=== PATIENT | male | born 1940 | race Caucasian/White ===

== ENCOUNTER 2017-09-16 17:14 | Inpatient (IN) | payer MEDICARE, OTHER ==
[~2017-09-16 17:14] MED LIST: fentaNYL 50 mcg/hr Tdm Patch TD SCH
--- NOTE | 2017-09-16 19:22 | ED Physician Chart ---
ED Chief Complaint/HPI - Patient Information Allergies:: Allergies Allergy/AdvReac Type Severity Reaction Status Date / Time Penicillins [PCN] Allergy Verified 09/16/17 17:25 ACETRAM Allergy Uncoded 09/16/17 17:25 Vitals:: Vital Signs - 8 hr 09/16/17 17:26 Temp 99.5 F HR 76 RR 17 BP 144/97 O2 Sat % 97 <Lit Lockhart - Last Filed: 09/16/17 21:43> - Patient Information Date Seen:: 09/16/17 Time Seen:: 19:21 Chief Complaint:: Aggressiveness History of Present Illness:: 76 yo male was brought from SNF to ER for evaluation of delusional thinking and aggressive behavior. Allergies:: Allergies Allergy/AdvReac Type Severity Reaction Status Date / Time Penicillins [PCN] Allergy Verified 09/16/17 17:25 ACETRAM Allergy Uncoded 09/16/17 17:25 Vitals:: Vital Signs - 8 hr 09/16/17 17:26 Temp 99.5 F HR 76 RR 17 BP 144/97 O2 Sat % 97 <Naveen Benítez - Last Filed: 09/18/17 20:53> ED Review of Systems - Review of Systems General/Constitutional: No fever, Weakness Skin: No bruising Head: No headache Eyes: No pain ENT: No nasal drainage Neck: No neck pain Cardio Vascular: No chest pain Pulmonary: No SOB GI: No nausea, No vomiting Musculoskeletal: No bone or joint pain Psychiatric: Depression Neurological: Weakness <Naveen Benítez - Last Filed: 09/18/17 20:53> ED Past Medical History - Past Medical History Past Medical History: Asthma/COPD, Other (ATRIAL FIBRILLATION, BPH) Social History: Non Smoker, No Alcohol, No Drug Use Psychiatricy History: Depression, Other (Schizoaffective disorder) <Naveen Benítez - Last Filed: 09/18/17 20:53> Family Medical History - Family Member Mother History Unknown: Yes Hx Family Cancer: Yes (mother) Hx Family Coronary Artery Disease: No Hx Family Congestive Heart Failure: No Hx Family Hypertension: No Hx Family Stroke: No Hx Family Diabetes: No Hx Family Seizures: No Hx Family Dementia: Yes Hx Family AIDS: No Hx Family HIV: No Hx Family COPD: No Hx Family Hepatitis: No Hx Family Psychiatric Problems: No Hx Family Tuberculosis: No <Naveen Benítez Last Filed: 09/18/17 20:53> ED Physical Exam - Physical Examination General/Constitutional: Awake Head: Atraumatic Eyes: PERRL Skin: No ecchymosis ENMT: Nasal exam nl Neck: No nuchal rigidity Respiratory: No Wheeze/Rhonchi/Rales Cardio Vascular: No murmur, gallop, rubs, NL S1 S2 Other Cardio Vascular comments:: IRR GI: No tenderness/rebounding/guarding Extremities: No edema Neuro/Psych: No focal deficits <Naveen Benítez Last Filed: 09/18/17 20:53> ED Labs/Radiology/EKG Results - Lab Results Results: Laboratory Tests 09/16/17 09/16/17 09/16/17 19:40 19:40 19:40 WBC 5.5 RBC 3.64 L Hgb 11.7 L Hct 35.3 L MCV 97.2 MCH 32.2 H MCHC Differential 33.2 RDW 15.3 Plt Count 164 MPV 7.1 Neutrophils % 62.0 Lymphocytes % 28.3 Monocytes % 7.3 Eosinophils % 1.0 Basophils % 1.4 Sodium 122 L Potassium 4.7 Chloride 92 L Carbon Dioxide 25.8 Anion Gap 8.9 BUN 12 Creatinine 0.8 Est GFR ( Amer) TNP Est GFR (Non-Af Amer) TNP BUN/Creatinine Ratio 15.0 Glucose 98 Calcium 9.0 Total Bilirubin 0.5 AST 18 ALT 6 L Alkaline Phosphatase 59 Troponin I B-Natriuretic Peptide 255.0 H Total Protein 6.8 Albumin 3.8 L Globulin 3.0 Albumin/Globulin Ratio 1.3 TSH 09/16/17 09/16/17 19:40 19:40 WBC RBC Hgb Hct MCV MCH MCHC Differential RDW Plt Count MPV Neutrophils % Lymphocytes % Monocytes % Eosinophils % Basophils % Sodium Potassium Chloride Carbon Dioxide Anion Gap BUN Creatinine Est GFR ( Amer) Est GFR (Non-Af Amer) BUN/Creatinine Ratio Glucose Calcium Total Bilirubin AST ALT Alkaline Phosphatase Troponin I < 0.01 L B-Natriuretic Peptide Total Protein Albumin Globulin Albumin/Globulin Ratio TSH 1.33 - Radiology Results Results: Chest x-ray showed prominent calcified aortic arch; no infiltrate - EKG Interpretations Rate & Rhythm: atrial fibrillation with a rate of 92 [place]: left axis deviation Comments:: Premature ventricular contraction <Lit Lockhart - Last Filed: 09/16/17 21:43> ED Septic Shock - . Is Septic Shock (SBP<90, OR Lactate>4 mmol\L) present?: No - <6hrs of presentation: Vital Signs: Vital Signs - 8 hr 09/16/17 17:26 Temp 99.5 F HR 76 RR 17 BP 144/97 O2 Sat % 97 <Lit Lockhart - Last Filed: 09/16/17 21:43> - <6hrs of presentation: Vital Signs: Vital Signs - 8 hr 09/16/17 17:26 Temp 99.5 F HR 76 RR 17 BP 144/97 O2 Sat % 97 <Naveen Benítez - Last Filed: 09/18/17 20:53> ED Reassessment (Disposition) - Reassessment Reassessment Condition:: Unchanged - Diagnosis Diagnosis:: Hyponatremia; atrial fibrillation; agitation - Patient Disposition Admitted to:: Telemetry Spoke to:: Kayla Epps Admitting Medical Physician:: Kayla Epps Condition at Disposition:: Stable, Unchanged <Lit Lockhart - Last Filed: 09/16/17 21:43> - Reassessment Reassessment:: Dr. Lockhart assumed the care at 20:00 <Naveen Benítez - Last Filed: 09/18/17 20:53> ED Discharge Plan <Lit Lockhart - Last Filed: 09/16/17 21:43> <Naveen Benítez - Last Filed: 09/18/17 20:53> - Patient Disposition Admit/Discharge/Transfer: Acute Care w/in this hosp
[2017-09-16 19:49] LABS: % BASOPHILS 1.4 % (0.0-2.0); % LYMPHOCYTES 28.3 % (20.0-50.0); % MONOCYTES 7.3 % (2.0-10.0); BASOPHILE ABSOLUTE 0.1 Th/cumm (0-0.2); EOSINOPHILE ABSOLUTE 0.1 Th/cmm (0.1-0.4); HEMATOCRIT 35.3 % (41.0-60); HEMOGLOBIN 11.7 gm/dL (12-16); LYMPHOCYTE ABSOLUTE 1.6 Th/cmm (1.5-3.0); MEAN CELL VOLUME 97.2 fl (80-99); MEAN CORPUSCULAR HEMOGLOBIN 32.2 pg (27.0-31.0); MEAN CORPUSCULAR HGB CONC 33.2 pg (28.0-36.0); MEAN PLATELET VOLUME 7.1 fl; MONOCYTE ABSOLUTE 0.4 Th/cmm (0.3-1.0); NEUTROPHILE ABSOLUTE 3.3 Th/cmm (1.8-8.0); PLATELET COUNT 164 Th/cmm (150-400); RED BLOOD COUNT 3.64 Mil/cmm (3.80-5.80); RED CELL DISTRIBUTION WIDTH 15.3 % (11.5-20.0); WHITE BLOOD COUNT 5.5 Th/cmm (4.8-10.8)
[2017-09-16 20:03] LABS: ALB/GLOB RATIO 1.3 (1.0-1.8); ALBUMIN 3.8 gm/dL (4.2-5.5); ALKALINE PHOSPHATASE 59 U/L (34-104); ANION GAP 8.9 (7.0-16.0); BILIRUBIN,TOTAL 0.5 mg/dL (0.3-1.0); BUN - UREA NITROGEN 12 mg/dL (7-25); CARBON DIOXIDE 25.8 mEq/L (21.0-31.0); CHLORIDE 92 mEq/L (98-107); CREATININE - SERUM 0.8 mg/dL (0.7-1.3); GLUCOSE 98 mg/dL (70-105); POTASSIUM SERUM 4.7 mEq/L (3.5-5.1); SGOT 18 U/L (13-39); SGPT/ALT 6 U/L (7-52); SODIUM SERUM 122 mEq/L (136-145); TOTAL PROTEIN,SERUM 6.8 gm/dL (6.0-8.3)
[2017-09-16] MEDS ORDERED: Albuterol Nebulizer 2.5mg/3mL HHN PRN (23:31)
[2017-09-16] MEDS ORDERED: Fleet Enema 135 mL RC PRN (23:34)
[2017-09-16] MEDS ORDERED: Magnesium Hydroxide (MOM) 30 mL UDC PO PRN (23:34)
[2017-09-16] MEDS ORDERED: SULINDAC 200 MG PO SCH (23:45)
[2017-09-16] MEDS ORDERED: Non-Formulary Item 1 EA (Apixaban [Eliquis] 2.5 MG) PO SCH (23:45)
[2017-09-17 03:47] LABS: URINE MICROSCOPIC INDICATED? YES; URINE SOURCE RANDOM
[2017-09-17 03:51] LABS: URINE BILIRUBIN NEGATIVE (NEGATIVE); URINE BLOOD MODERATE (NEGATIVE); URINE GLUCOSE (UA) NEGATIVE (NEGATIVE); URINE KETONE NEGATIVE (NEGATIVE); URINE LEUKOCYTE ESTERASE SMALL (NEGATIVE); URINE NITRATE NEGATIVE (NEGATIVE); URINE PH 7.5 (4.6 - 8.0); URINE PROTEIN NEGATIVE (NEGATIVE); URINE UROBILINOGEN 0.2 E.U./dL (0.2 - 1.0)
[2017-09-17 04:01] LABS: URINE CLARITY CLEAR (CLEAR); URINE COLOR YELLOW
[2017-09-17 04:04] LABS: URINE BACTERIA MODERATE /hpf (NONE SEEN); URINE EPITHELIAL CELLS OCCASIONAL /lpf (FEW)
[2017-09-17 06:39] LABS: % EOSINOPHILS 1.6 % (0.0-5.0); % LYMPHOCYTES 37.8 % (20.0-50.0); % MONOCYTES 9.2 % (2.0-10.0); % NEUTROPHILS 51.4 % (40.0-80.0); EOSINOPHILE ABSOLUTE 0.1 Th/cmm (0.1-0.4); HEMATOCRIT 35.4 % (41.0-60); MEAN CELL VOLUME 96.8 fl (80-99); MEAN CORPUSCULAR HEMOGLOBIN 32.9 pg (27.0-31.0); MEAN PLATELET VOLUME 7.5 fl; MONOCYTE ABSOLUTE 0.5 Th/cmm (0.3-1.0); NEUTROPHILE ABSOLUTE 2.6 Th/cmm (1.8-8.0); PLATELET COUNT 165 Th/cmm (150-400); RED BLOOD COUNT 3.66 Mil/cmm (3.80-5.80); RED CELL DISTRIBUTION WIDTH 15.4 % (11.5-20.0); WHITE BLOOD COUNT 5.2 Th/cmm (4.8-10.8)
[2017-09-17] MEDS ORDERED: Albuterol Nebulizer 2.5mg/3mL HHN SCH (07:00)
[2017-09-17 07:01] LABS: ALB/GLOB RATIO 1.2 (1.0-1.8); ALBUMIN 3.7 gm/dL (4.2-5.5); ALKALINE PHOSPHATASE 58 U/L (34-104); ANION GAP 9.3 (7.0-16.0); BILIRUBIN,TOTAL 0.6 mg/dL (0.3-1.0); BUN - UREA NITROGEN 10 mg/dL (7-25); CALCIUM SERUM 8.9 mg/dL (8.6-10.3); CHLORIDE 95 mEq/L (98-107); CREATININE - SERUM 0.8 mg/dL (0.7-1.3); GLUCOSE 87 mg/dL (70-105); MAGNESIUM 2.2 mg/dL (1.9-2.7); POTASSIUM SERUM 4.3 mEq/L (3.5-5.1); SGOT 19 U/L (13-39); SGPT/ALT 6 U/L (7-52); SODIUM SERUM 126 mEq/L (136-145); TOTAL PROTEIN,SERUM 6.8 gm/dL (6.0-8.3)
[2017-09-17] MEDS: INSULIN ASPART SLIDING SCALE 100 UNITS/ML UNIT SUBQ SCH ×3 (07:15→21:38)
--- NOTE | 2017-09-17 07:39 | Diagnostic Imaging Report ---
CHEST X-RAY: AP view INDICATION: Shortness of breath COMPARISON: None FINDINGS: Exam is limited due to patient positioning. Curvilinear density, likely a skinfold is seen along the left mid thorax. Increased bibasilar lung markings are noted. Chronic lung changes are noted. No focal consolidation or effusions. Mild cardiomegaly is noted with atherosclerosis. Degenerative changes of the spine are noted with scoliosis. Old left lower rib fractures are noted. IMPRESSION: Limited exam due to positioning. Curvilinear density along the left mid lung zone is probably related to a skinfold. Otherwise no focal consolidation identified. Bibasal subsegmental atelectatic changes. Mild cardiomegaly with atherosclerosis. When clinically feasible, follow-up dedicated PA and lateral views are recommended for further assessment.
[2017-09-17] MEDS: Albuterol/Ipratropium Neb 3 ML AERS HHN SCH ×4 (07:57→19:02)
[2017-09-17] MEDS ORDERED: INSULIN HUMAN REGULAR 100 UNITS/ML UNIT SUBQ SCH (09:00)
[2017-09-17] MEDS ORDERED: TOFACITINIB CITRATE 11 MG PO SCH (09:00)
[2017-09-17] MEDS ORDERED: Non-Formulary Item 1 EA (Tiotropium Bromide [Spiriva] 18 MCG) INH SCH (09:00)
[2017-09-17] MEDS: Lactobacillus Rhamnosus GG 15 Billion CFU CAP.SPRINK PO SCH ×2 (09:57→17:30)
[2017-09-17] MEDS: Lactulose 10 Gm/15 mL 30mL UDC PO SCH (09:59)
[2017-09-17] MEDS: POLYETHYLENE GLYCOL 3350 17 GM PACK PO SCH (10:00)
--- NOTE | 2017-09-17 10:08 | History & Physical ---
ADMIT DATE: CHIEF COMPLAINT: Agitation. HISTORY OF PRESENT ILLNESS: The patient is a 76-year-old gentleman with history of psych disorder/schizoaffective disorder, hypertension, COPD, seizure disorder, rheumatoid arthritis, BPH, atrial fib with questionable CHF, who was in his usual state of health until a couple days ago, when he started getting agitated and therefore was transferred to this facility for possible Geropsych admission. On routine labs, he was noted to have a sodium of 122, but otherwise asymptomatic. His BNP level was also noted to be a little high at 255 and UA was consistent with a UTI. The patient has been admitted to the telemetry floor for further management and care. PAST MEDICAL HISTORY: As noted above. History of chronic pain syndrome secondary to advanced RA. PAST SURGERIES: He states he has had bilateral inguinal hernia repair, left eye surgery, appendectomy. FAMILY HISTORY: Noncontributory. SOCIAL HISTORY: Previous smoker. Denies any ETOH. He lives at [facility]. ALLERGIES: ALLERGIC TO PENICILLIN AND ACETRAM. OUTPATIENT MEDICATIONS: Acetaminophen 650 q.6 p.r.n. for pain or fever, DuoNeb q. 4 hours as needed, Eliquis 2.5 b.i.d., Dulcolax 10 mg q.6 p.r.n. for constipation, budesonide metered dose inhaler b.i.d., Colace 250 b.i.d., Cymbalta 30 every day, fentanyl patch 15 mcg q. 72 hours, folic acid 1 mg every day, insulin sliding scale, acidophilus 1 tab b.i.d., lactulose 20 grams every day p.r.n. for constipation, Keppra 500 mg b.i.d., Claritin 10 every day, milk of magnesia 30 mL q. 24 hours, methotrexate 15 mg q. 7 days, metoprolol 25 b.i.d., Fleet enema q. 72 hours p.r.n. for severe constipation, MiraLax 17 g every day, Seroquel 300 at bedtime, sulfasalazine 200 b.i.d., sulindac 200 b.i.d., Flomax 0.4 every day, Spiriva 18 mcg inhalation every day, and Ambien 10 at bedtime. REVIEW OF SYSTEMS: CONSTITUTIONAL: He denies any fever, chills, recent weight loss and recent ailments. CARDIAC: No chest pain, palpitations. PULMONARY: He has chronic cough, but no acute shortness of breath or phlegm production. GASTROINTESTINAL: No bowel habit changes. GENITOURINARY: Occasional urinary retention requiring I/O caths NEUROLOGIC: No changes in vision, no headaches. Denies any syncopal episodes. PSYCH: Does admit to increased agitation and also complains of insomnia. PHYSICAL EXAMINATION: VITAL SIGNS: Temperature 98.6, pulse 68-103, respirations 20, BP 124/86, satting 97% on room air. GENERAL: Well-developed, thin, elderly gentleman currently awake, alert and oriented x 2. He is cooperative and is answering questions appropriately. HEAD AND NECK: Normocephalic, atraumatic. Pupils are reactive to light. Extraocular movements are intact. Oropharynx moist and clear. CARDIOVASCULAR: Regular rate and rhythm with distant sounds. LUNGS: Diminished, but clear to auscultation bilaterally. ABDOMEN: Soft, supple, nontender, nondistended, normoactive bowel sounds. EXTREMITIES: On lower extremity, there is no pedal edema. MUSCULOSKELETAL EXAM: He has got ulnar deviation in both upper extremities. NEURO: Appears to be nonfocal. Cranial nerves 2-12 are within normal limits. LABS: White count 5.5, H and H 11/35, platelet count 164. Sodium 122, potassium 4.7, chloride 92. LFTs were essentially within normal limits. BNP was 255. TSH 1.33 and UA was positive for glucose, leukocyte esterase, 2-5 rbc's, and moderate bacteria. DIAGNOSTICS: A chest x-ray showed mild cardiomegaly with atherosclerosis. Bibasilar segmental atelectatic changes. IMPRESSION: 1. Acute psych decompensation with agitation. 2. History of schizoaffective disorder. 3. Hyponatremia. 4. History of congestive heart failure with mild elevation of BNP. 5. History of atrial fibrillation, currently rate controlled. 6. Urinary tract infection. 7. History of benign prostatic hypertrophy. 8. Essential hypertension. 9. History of chronic obstructive pulmonary disease - clinically stable. 10. History of seizure disorder. PLAN: The patient has been admitted to the tele bella given his atrial fib and will be kept on his medications as scheduled. I have added Lasix 40 mg IV every day and we will monitor his labs and BNP level and renal function. A psych consult will also be asked for further management and care. Once his sodium level improves and if the pain remains stable, the patient will be eligible to be transferred to [facility] for further psych management and care. JOB# [id number] JEAN PIERRE
[2017-09-17] MEDS: Budesonide 0.5 Mg/2 mL Ud HHN SCH (19:02)
[2017-09-18 06:22] LABS: % BASOPHILS 0.1 % (0.0-2.0); % EOSINOPHILS 1.5 % (0.0-5.0); % LYMPHOCYTES 30.6 % (20.0-50.0); % MONOCYTES 8.7 % (2.0-10.0); % NEUTROPHILS 59.1 % (40.0-80.0); EOSINOPHILE ABSOLUTE 0.1 Th/cmm (0.1-0.4); HEMATOCRIT 37.7 % (41.0-60); HEMOGLOBIN 12.8 gm/dL (12-16); LYMPHOCYTE ABSOLUTE 1.5 Th/cmm (1.5-3.0); MEAN CORPUSCULAR HEMOGLOBIN 33.2 pg (27.0-31.0); MEAN CORPUSCULAR HGB CONC 33.8 pg (28.0-36.0); MEAN PLATELET VOLUME 7.3 fl; MONOCYTE ABSOLUTE 0.4 Th/cmm (0.3-1.0); NEUTROPHILE ABSOLUTE 2.8 Th/cmm (1.8-8.0); PLATELET COUNT 163 Th/cmm (150-400); RED BLOOD COUNT 3.85 Mil/cmm (3.80-5.80); RED CELL DISTRIBUTION WIDTH 15.7 % (11.5-20.0); WHITE BLOOD COUNT 4.8 Th/cmm (4.8-10.8)
[2017-09-18] MEDS: Albuterol/Ipratropium Neb 3 ML AERS HHN SCH ×4 (07:13→19:09)
[2017-09-18] MEDS: Budesonide 0.5 Mg/2 mL Ud HHN SCH ×2 (07:13→19:09)
--- NOTE | 2017-09-18 08:03 | Diagnostic Imaging Report ---
Ultrasound urinary bladder History: Urinary retention, assess pre and post void bladder volumes Comparison: None Technique: Sonography of the pelvis was performed in multiple planes. The prevoid urinary bladder volume is 82 mL's. The postvoid bladder volume is 60 mL's. The urinary bladder wall measures 4 mm. The prostate gland measures 2.6 x 3.3 x 2.6 cm demonstrating an echogenic focus. IMPRESSION: Slightly elevated post void residual bladder volume of 60 mL. The significance of this finding should be correlated clinically. Mild prominence of urinary bladder wall. Inflammatory or infiltrative process cannot be excluded, correlate clinically. Heterogeneous prostate gland with likely calcification, nonspecific. Please correlate with PSA levels.
[2017-09-18] MEDS: Lactulose 10 Gm/15 mL 30mL UDC PO SCH (08:46)
[2017-09-18] MEDS: Lactobacillus Rhamnosus GG 15 Billion CFU CAP.SPRINK PO SCH ×2 (08:47→18:05)
[2017-09-18] MEDS: POLYETHYLENE GLYCOL 3350 17 GM PACK PO SCH (08:48)
[2017-09-18 09:06] LABS: ANION GAP 11.8 (7.0-16.0); BUN - UREA NITROGEN 14 mg/dL (7-25); CALCIUM SERUM 9.3 mg/dL (8.6-10.3); CHLORIDE 94 mEq/L (98-107); CREATININE - SERUM 0.8 mg/dL (0.7-1.3); GLUCOSE 85 mg/dL (70-105); POTASSIUM SERUM 3.8 mEq/L (3.5-5.1); SODIUM SERUM 128 mEq/L (136-145)
[2017-09-18] MEDS: INSULIN ASPART SLIDING SCALE 100 UNITS/ML UNIT SUBQ SCH ×4 (09:17→21:05)
[2017-09-19 06:17] LABS: % BASOPHILS 0.1 % (0.0-2.0); % EOSINOPHILS 0.4 % (0.0-5.0); % LYMPHOCYTES 14.4 % (20.0-50.0); % MONOCYTES 8.7 % (2.0-10.0); % NEUTROPHILS 76.4 % (40.0-80.0); HEMOGLOBIN 12.7 gm/dL (12-16); LYMPHOCYTE ABSOLUTE 1.5 Th/cmm (1.5-3.0); MEAN CELL VOLUME 98.4 fl (80-99); MEAN CORPUSCULAR HEMOGLOBIN 32.9 pg (27.0-31.0); MEAN CORPUSCULAR HGB CONC 33.5 pg (28.0-36.0); MEAN PLATELET VOLUME 7.6 fl; MONOCYTE ABSOLUTE 0.9 Th/cmm (0.3-1.0); NEUTROPHILE ABSOLUTE 7.8 Th/cmm (1.8-8.0); PLATELET COUNT 171 Th/cmm (150-400); RED BLOOD COUNT 3.86 Mil/cmm (3.80-5.80); RED CELL DISTRIBUTION WIDTH 15.4 % (11.5-20.0); WHITE BLOOD COUNT 10.2 Th/cmm (4.8-10.8)
[2017-09-19 06:30] LABS: ANION GAP 12.2 (7.0-16.0); BUN - UREA NITROGEN 21 mg/dL (7-25); CALCIUM SERUM 9.3 mg/dL (8.6-10.3); CARBON DIOXIDE 26.4 mEq/L (21.0-31.0); CHLORIDE 91 mEq/L (98-107); GLUCOSE 101 mg/dL (70-105); MAGNESIUM 2.1 mg/dL (1.9-2.7); POTASSIUM SERUM 3.6 mEq/L (3.5-5.1); SODIUM SERUM 126 mEq/L (136-145)
[2017-09-19] MEDS: INSULIN ASPART SLIDING SCALE 100 UNITS/ML UNIT SUBQ SCH ×3 (06:42→17:26)
[2017-09-19] MEDS: Albuterol/Ipratropium Neb 3 ML AERS HHN SCH ×4 (07:14→18:57)
[2017-09-19] MEDS: Budesonide 0.5 Mg/2 mL Ud HHN SCH ×2 (07:14→18:57)
[2017-09-19] MEDS: Lactulose 10 Gm/15 mL 30mL UDC PO SCH (08:27)
[2017-09-19] MEDS: Lactobacillus Rhamnosus GG 15 Billion CFU CAP.SPRINK PO SCH ×2 (08:30→16:19)
[2017-09-19] MEDS: POLYETHYLENE GLYCOL 3350 17 GM PACK PO SCH (08:31)
--- NOTE | 2017-09-19 11:47 | Discharge Summary ---
DATE OF DISCHARGE: 09/19/2017 ADMITTING DIAGNOSES: 1. Acute psych decompensation with agitation 2. Hyponatremia. 3. History of congestive heart failure with mild elevation of BNP. 4. Urinary tract infection. SECONDARY DIAGNOSES: Include history of schizoaffective disorder, history of atrial fib, history of benign prostatic hypertrophy, essential hypertension, history of chronic obstructive pulmonary disease, clinically stable, history of seizure disorder. Chronic pain syndrome. DISCHARGE DIAGNOSES: 1. Acute psych decompensation with agitation/clinically stable. 2. Hyponatremia, improved/stable. 3. Urinary tract infection. CONSULTANTS: Dr. Lopez-psychiatry. MAJOR PROCEDURES: There was a bladder ultrasound done on the 15 showing slightly elevated postvoid residual bladder volume of 60 mL, mild prominence of the urinary bladder wall. BRIEF HOSPITAL COURSE: The patient is a 76-year-old gentleman with history of psych disorder/schizoaffective disorder, hypertension, COPD, seizure disorder, BPH, AFib with mild CHF symptomatology who was transferred to the ER secondary to agitation for possible Geropsych admission. On labs, he was noted to have a sodium of 122 and a slight elevation of BNP at 255. He also had a UA consistent with a UTI. Given these findings, the patient was admitted to the medical/surgical floor for further management and care. The patient was kept on his current medications and was given Lasix IV for the hyponatremia. Clinically, he has remained stable throughout his hospital stay and as far as his labs, the sodium did improve to a level of 126 by 09/17. His urine grew gram-negative rods with official sensitivity results pending. The patient was placed on ciprofloxacin and he denies any dysuria, but did complain of mild urinary retention which in the past has required I/O cath. DISCHARGE MEDICATIONS: Tylenol 650 q.6 p.r.n. for pain, DuoNeb q.4 hours p.r.n. for wheezing, Dulcolax 10 mg q.6 p.r.n. for constipation, Pulmicort 0.5 b.i.d., Colace 250 b.i.d., Cymbalta 30 every day, fentanyl patch 50 mcg q.72 hours. Fleet enema 133 mL q.72 hours for severe constipation, folic acid 1 mg every day, Lasix 20 p.o. every day, ibuprofen 400 mg t.i.d., insulin sliding scale per protocol, lactobacillus 1 tab b.i.d., lactulose 20 grams every day, Keppra 500 mg b.i.d., Claritin 10 mg every day, MOM 30 mL q.24 hours p.r.n. for constipation, methotrexate 15 mg q.7 days every week, Metoprolol 25 b.i.d., sulfasalazine 250 b.i.d., sulindac 200 mg b.i.d., Flomax 0.4 b.i.d., Hytrin 1 mg at bedtime, tofacitinib 11 mg every day, zolpidem 10 at bedtime. CONDITION ON DISCHARGE: Stable. DISPOSITION: Discharge to [facility] under the care of Dr. Danielle. [facility]# [id number] [facility] [place]
--- NOTE | 2017-09-19 20:08 | Consultation ---
DATE OF CONSULTATION: 09/19/2017 REQUESTING PHYSICIAN: Kayla Epps M.D. REASON FOR CONSULTATION: Agitated behavior. HISTORY OF PRESENT ILLNESS: This patient is a 76-year-old male [facility] a [facility]. Information obtained by directly interviewing the patient as reviewing the patient admission papers, disposition, and hospitalization. The patient has been getting easily irritable, screaming and yelling and has been creating a major problem at the jail facility. The patient has to be referred over here because he could not be contained at a lower level of care. The patient is reported to have multiple medical problems such as hypertension, COPD, seizure disorder, rheumatoid arthritis, BPH, atrial fibrillation and congestive heart failure. During the interview, the patient has been stating that he has to have an indwelling catheter and he cannot be easing the uterine out. The patient has been getting easily frustrated with the nursing staff. PAST PSYCHIATRIC HISTORY: The patient denies any prior psychiatric hospitalizations. MEDICAL HISTORY: Physical examination is done by Dr. Epps and is noted to have significant above-mentioned problems. SOCIAL HISTORY: The patient is a resident of the [facility]. SUBSTANCE ABUSE HISTORY: None. PHYSICAL OR SEXUAL ABUSE HISTORY: None. LEGAL PROBLEMS: None at this time. STRENGTHS AND ASSETS: The patient is poorly motivated. MENTAL STATUS EXAMINATION: The patient is a 76-year-old, looking his stated age, thin built, superficially cooperative. Insight and judgment at this time are noted to be impaired. Impulse control seems to be poor. Coping skills are also noted to be very poor. The patient is screaming and yelling. The patient has been having difficult time to cope with the stress. Review of the chart indicated that the patient is alert and aware that he is in the hospital. Review of the chart indicated that the patient is on Cymbalta for his depression and he is also receiving Seroquel 200 mg at bedtime. DIAGNOSTIC IMPRESSION: Schizoaffective disorder as per the history. PLAN: To continue the patient with the current medications. I encouraged the patient to verbalize the concerns rather than to act out. Once patient is medically cleared, the patient possibly is going to be transfer to the psychiatric unit. Thank you, Dr. Epps for allowing me to participate in the care of the patient. JOB# [id number]
== END 2017-09-19 21:34 | DRG 690 ==
LOC: ER 17:14 → TELE 22:02 → MSI 09-19 15:54
PROVIDERS: ADMIT Internal Medicine; ATTEND Internal Medicine
DX: N39.0 Urinary tract infection, site not specified (principal); E87.1 Hypo-osmolality and hyponatremia; F23 Brief psychotic disorder; I50.32 Chronic diastolic (congestive) heart failure; F25.9 Schizoaffective disorder, unspecified; J44.9 Chronic obstructive pulmonary disease, unspecified; M06.9 Rheumatoid arthritis, unspecified; I48.91 Unspecified atrial fibrillation; G40.909 Epilepsy, unspecified, not intractable, without status epilepticus; G89.4 Chronic pain syndrome; I11.0 Hypertensive heart disease with heart failure; N40.1 Benign prostatic hyperplasia with lower urinary tract symptoms; R33.8 Other retention of urine; Z90.49 Acquired absence of other specified parts of digestive tract; Z88.0 Allergy status to penicillin; Z88.8 Allergy status to other drugs, medicaments and biological substances; Z80.9 Family history of malignant neoplasm, unspecified; Z81.8 Family history of other mental and behavioral disorders
CPT/HCPCS: 36415-UA; 71045-TC; 76857-TC; 80048-TC; 80053-TC; 81001-TC; 82948-90; 83036-90; 83735-TC; 83880-TC; 84443-TC; 84484-TC; 85025-TC; 86592-TC; 87086-90; 93005; 94760; J1815; J1940; J7613; Z7610

== ENCOUNTER 2017-09-19 21:34 | Inpatient (IN) | payer MEDICARE, OTHER ==
[2017-09-20] MEDS ORDERED: Magnesium Hydroxide (MOM) 30 mL UDC PO PRN ×2 (00:07→00:25)
[2017-09-20] MEDS ORDERED: Maalox 30 mL Cup PO PRN (00:07)
[2017-09-20 00:16] VITALS: BP 130/71
[2017-09-20] MEDS ORDERED: Fleet Enema 135 mL RC PRN (00:25)
[2017-09-20] MEDS ORDERED: Albuterol Nebulizer 2.5mg/3mL HHN PRN (00:25)
[2017-09-20] MEDS ORDERED: INSULIN HUMAN REGULAR 100 UNITS/ML UNIT SUBQ SCH (07:30)
[2017-09-20] MEDS: POLYETHYLENE GLYCOL 3350 17 GM PACK PO SCH (09:00)
[2017-09-20] MEDS ORDERED: TOFACITINIB CITRATE 11 MG PO SCH (09:00)
[2017-09-20] MEDS: Lactulose 10 Gm/15 mL 30mL UDC PO SCH (09:00)
[2017-09-20] MEDS: Fexofenadine 60 mg Tab PO SCH (09:00)
[2017-09-20] MEDS ORDERED: Non-Formulary Item 1 EA (Apixaban [Eliquis] 2.5 MG) PO SCH (09:00)
[2017-09-20] MEDS: Multivitamin Tab PO SCH (09:00)
[2017-09-20] MEDS ORDERED: Non-Formulary Item 1 EA (Tiotropium Bromide [Spiriva] 18 MCG) INH SCH (09:00)
[2017-09-20] MEDS: Lactobacillus Rhamnosus GG 15 Billion CFU CAP.SPRINK PO SCH ×2 (09:00→17:57)
[2017-09-20] MEDS ORDERED: SULINDAC 200 MG PO SCH (09:00)
[2017-09-20] MEDS ORDERED: Albuterol Nebulizer 2.5mg/3mL HHN SCH (09:00)
[2017-09-20] MEDS: Albuterol Nebulizer 2.5mg/3mL HHN SCH (19:41)
[2017-09-20] MEDS: Budesonide 0.5 Mg/2 mL Ud HHN SCH (19:42)
--- NOTE | 2017-09-21 02:03 | Psychosocial Evaluation ---
DATE OF SERVICE: 09/19/2017 PSYCHIATRIC EVALUATION IDENTIFYING DATA: The patient is a 76-year-old male, a resident of [facility]. Information obtained by directly interviewing the patient as well as reviewing the admission papers. The patient has been admitted here on a voluntary basis in view of his agitated behaviors. CHIEF COMPLAINT: "I am not getting enough medical care." HISTORY OF PRESENT ILLNESS: This is the first psychiatric hospitalization to 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 The patient is reported to have been getting easily irritable and angry and has been somatically preoccupied and stating that something is wrong with him all the time and is getting out of control and hence the patient has been admitted over here for stabilization. PAST PSYCHIATRIC HISTORY: Please refer to the above. MEDICAL HISTORY AND PHYSICAL EXAMINATION: Requested to be done by Dr. Epps. SUBSTANCE ABUSE HISTORY: None. PHYSICAL OR SEXUAL ABUSE HISTORY: None. LEGAL PROBLEMS: None at this time. MENTAL STATUS EXAMINATION: The patient is a 76-year-old, looking his stated age, superficially cooperative. Eye contact is poor. Mood is noted to be irritable. Affect is constricted. The patient is going in a persuasive manner about saying the same things, saying that he used to be on venlafaxine. He used to be on trazodone and Seroquel. The patient stated that he has been sick and he is here for a long period of time and needs to be on higher dose of medication, but at the same time the patient has been somatically preoccupied. Yesterday, he was mentioning that he cannot be on his indwelling catheter and a tray. He is talking about being constipated and is stating that he needed laxatives. The patient is alert and oriented to the place and the patient is fully aware that he is in the hospital. The patient is not presenting with a threat to harm self or others, but the patient is getting easily irritable and angry. Insight and judgment at this time are noted to be impaired. Impulse control seems to be poor. Coping skills are noted poor. The patient's short and long-term memory are noted to be poor. The patient, however, is fully aware that he is in the hospital. 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 AXIS II: None. AXIS III: As per Dr. Epps. IMMEDIATE TREATMENT PLAN: The patient is going to be observed on inpatient unit. Provided with supportive psychotherapy. The patient is going to be closely monitored and encouraged to verbalize the concerns rather than to act out. Once stabilized, the patient is going to be discharged to [facility] to be followed up on an outpatient basis. JOB# [id number]
--- NOTE | 2017-09-21 02:29 | Consultation ---
DATE OF CONSULTATION: 09/20/2017 REFERRING PHYSICIAN: Dr. Danielle. REASON FOR CONSULT: Medical management. HISTORY OF PRESENT ILLNESS: The patient is a 76-year-old gentleman who was admitted to the medical floor last week for hyponatremia and mild CHF. He initially came into the ED secondary to increased agitation/psych decompensation. Patient has history of schizoaffective disorder. Other pertinent medical history includes hypertension, COPD, seizure disorder, advanced RA, BPH, atrial fib, CHF. Initial BNP level at the medical floor was noted to be 122 and with IV Lasix, his level improved. He was basically asymptomatic throughout his hospital stay showing no evidence of CHF decompensation, even though his BNP initially was at 255. He also had a UA consistent with a UTI and also complained of mild urinary symptomatology (urinary frequency and retention). Patient has been admitted to [facility] for psych management. PAST MEDICAL HISTORY: As noted above, history of chronic pain syndrome secondary to advanced RA. PAST SURGICAL HISTORY: Include bilateral inguinal repair, left eye surgery and appendectomy many years ago. FAMILY HISTORY: Noncontributory. SOCIAL HISTORY: He is a previous smoker. He denies any alcohol. He lives at a SNF. ALLERGIES: ALLERGIC TO PENICILLIN AND ACETRAM. OUTPATIENT MEDICATIONS: Tylenol 650 q. 4 p.r.n. for pain, albuterol nebulizer twice a day and q. 4 p.r.n., Eliquis 2.5 b.i.d., Dulcolax 10 mg q. 6 p.r.n. for constipation, budesonide inhaler b.i.d., docusate sodium 250 b.i.d., Cymbalta 30 every day, fentanyl patch 50 mcg 1 patch q. 72 hours, [place] 60 mg every day, Fleet enema 133 mL per rectum q. 72 hours p.r.n. for severe constipation, folic acid 1 mg every day, insulin sliding scale per protocol, lactobacillus 1 tab b.i.d., lactulose 20 grams every day, Keppra 500 mg b.i.d., Claritin 10 every day, lorazepam 0.5 q.4h. p.r.n. for anxiety, milk of magnesia 30 mL at bedtime p.r.n. for constipation, methotrexate 15 mg q. 7 days every week, metoprolol 25 b.i.d., multivitamins every day, MiraLax 17 grams every day, quetiapine 300 mg p.r.n. or 300 mg at bedtime, simethicone 80 mg daily, sulfasalazine 250 b.i.d., sulindac 200 mg b.i.d., Flomax 0.4 b.i.d. and Hytrin 5 mg every day. REVIEW OF SYSTEMS: CONSTITUTIONAL: He denies any fever, chills, any recent weight loss. CARDIOVASCULAR: No chest pain, palpitations. PULMONARY: Denies any shortness of breath at this time. He does have a chronic cough. GASTROINTESTINAL: Occasional urinary retention that requires I and O cathing. GENITOURINARY: Denies any dysuria or hematuria. NEUROLOGIC: Denies any syncope, any headaches, any changes in vision. PHYSICAL EXAMINATION: VITAL SIGNS: Temperature 98.2, pulse 76, respirations 18, BP 130/71, satting 99% on room air. GENERAL: He is a well-developed, thin male, not in acute distress. He is awake, alert and oriented x 2, he is cooperative and able to answer questions appropriately. HEAD AND NECK: Normocephalic, atraumatic. Pupils are reactive to light. Extraocular movements are intact. Oropharynx is moist and clear. CARDIAC: Regular rate and rhythm without any murmurs. LUNGS: Diminished, but clear to auscultation bilaterally. ABDOMEN: Soft, supple, nontender, nondistended, with normoactive bowel sounds. EXTREMITIES: On lower extremity, there is no pedal edema, clubbing or cyanosis. MUSCULOSKELETAL: He has got an ulnar deviation in both upper extremities. NEUROLOGIC: Appears to be nonfocal and within normal limits. Cranial nerves 2-12 are essentially within normal limits. LABORATORY DATA: On admission to the medical floor, white count 10.2, H and H 12/38 with a platelet count of 171. Sodium 126, potassium 3.6, chloride 91, CO2 26, glucose 101, BUN 21, creatinine 1.0. ASSESSMENT: 1. Acute psych decompensation with agitation. 2. Hyponatremia, likely chronic in nature. 3. History of CHF with mild elevation of BNP that is clinically asymptomatic. 3. Urinary tract infection-on antibiotics, follow c/s. 4. History of atrial fibrillation, currently rate controlled. 5. History of BPH. 6. Essential hypertension. 7. Type 2 diabetes. 8. Chronic obstructive lung disease, clinically stable. 9. History of seizure disorder. 10. History of chronic pain syndrome. 11. History of RA. PLAN: The patient has been admitted to [facility] and he will be kept on his current medications as schedule. The patient will be monitored on a daily basis. Thank you very much for the consult. JOB# [id number] JEAN PIERRE
[2017-09-21] MEDS: INSULIN ASPART SLIDING SCALE 100 UNITS/ML UNIT SUBQ SCH (06:47)
[2017-09-21] MEDS: Albuterol Nebulizer 2.5mg/3mL HHN SCH ×2 (06:54→19:54)
[2017-09-21] MEDS: Budesonide 0.5 Mg/2 mL Ud HHN SCH ×2 (06:54→19:55)
[2017-09-21] MEDS: Lactobacillus Rhamnosus GG 15 Billion CFU CAP.SPRINK PO SCH ×2 (09:06→16:33)
[2017-09-21] MEDS: Lactulose 10 Gm/15 mL 30mL UDC PO SCH (09:07)
[2017-09-21] MEDS: Multivitamin Tab PO SCH (09:08)
[2017-09-21] MEDS: POLYETHYLENE GLYCOL 3350 17 GM PACK PO SCH (09:09)
[2017-09-21] MEDS: Fexofenadine 60 mg Tab PO SCH (09:15)
--- NOTE | 2017-09-21 23:09 | Progress Notes ---
DATE: 09/21/2017 SUBJECTIVE: Staff was spoken to. The patient is interviewed. Mood is noted to be irritable. Affect is constricted. The patient has been perseverative. The patient has been coming with the somatic complaints. One minute, he says that he needs to have the catheter. Next minute, he has to be taken care of his heart problems. Insight and judgment are noted to be poor. Impulse control seems to be limited. Coping skills are noted to be poor. PLAN: To continue the patient with supportive therapy. Encouraged the patient to verbalize the concerns rather than to act out. JOB# [id number]
[2017-09-22] MEDS: Albuterol Nebulizer 2.5mg/3mL HHN SCH ×2 (06:44→19:22)
[2017-09-22] MEDS: Budesonide 0.5 Mg/2 mL Ud HHN SCH ×2 (06:44→19:22)
[2017-09-22] MEDS: INSULIN ASPART SLIDING SCALE 100 UNITS/ML UNIT SUBQ SCH (07:05)
[2017-09-22] MEDS: Fexofenadine 60 mg Tab PO SCH (08:52)
[2017-09-22] MEDS: Lactobacillus Rhamnosus GG 15 Billion CFU CAP.SPRINK PO SCH ×2 (08:52→17:30)
[2017-09-22] MEDS: Lactulose 10 Gm/15 mL 30mL UDC PO SCH (08:52)
[2017-09-22] MEDS: POLYETHYLENE GLYCOL 3350 17 GM PACK PO SCH (08:54)
[2017-09-22] MEDS: Multivitamin Tab PO SCH (08:54)
[2017-09-22] MEDS: fentaNYL 50 mcg/hr Tdm Patch TD SCH (08:58)
--- NOTE | 2017-09-22 17:38 | Progress Notes ---
DATE: 09/22/2017 SUBJECTIVE: Staff was spoken to. The patient is interviewed. Mood is noted to be irritable. Affect is constricted. The patient's coping skills are noted to be poor. The patient is stating that he needs to be on 400 mg of the Seroquel in the morning and the patient is stating that he needs higher doses. The patient also is stating that he needs to be on catheterized and also has to have 3 laxatives a day and he was given only 2. The patient has been so fixated on his somatic condition. The patient's coping skills are noted to be very poor. Insight and judgment are also noted to be very much impaired. ASSESSMENT: The patient is still psychotic. PLAN: To continue the patient with the current medications and follow. JOB# [id number]
--- NOTE | 2017-09-22 18:33 | Consultation ---
DATE OF CONSULTATION: TYPE OF CONSULTATION: Psychology. REFERRING PHYSICIAN: Macho Danielle MD HISTORY OF PRESENT ILLNESS: The patient is a 76-year-old male. The patient is a resident of [facility]. The following is by record review and by the patient's self report. The patient is being admitted due to increasing agitated behaviors. According to record review, the staff at his facility reports that he had been getting easily irritated and angry. The patient also had stated that he believes something is medically wrong with him and that he is not getting the medical care that he needs. The patient became demanding and unredirectable and therefore was admitted here for stabilization. Upon interview, the patient denies any suicidal ideation, plan, or intention. The patient repeated that he believes he is not getting the right medical care for his condition and is preoccupied with this idea. PAST MEDICAL HISTORY: Please see history and physical by Dr. Epps. PAST PSYCHIATRIC HISTORY: The patient has a history of schizophrenia, chronic paranoid type. The patient is under the care of a psychiatrist at his facility and also provided with psychology services. SUBSTANCE ABUSE HISTORY: The patient did not answer this question. PSYCHOSOCIAL HISTORY: The patient did not answer questions about occupational or educational history or baptist affiliation. The patient denied any history of physical or sexual abuse. The patient denies any current legal problems. MENTAL STATUS EXAMINATION: The patient appears to be his stated age. The patient's attitude is guarded, but generally cooperative. Speech is pressured. Eye contact is poor. Mood is irritable. Affect is constricted. The patient denied any auditory or visual hallucinations. The patient denied any suicidal ideation, plan, or intention. The patient seems to be preoccupied with his medical care. Thought process shows perseveration on his medical condition. There is some evidence that these may be somatic complaints. Impulse control is poor. Concentration is poor. The patient was unable to sustain focus and attention and is highly distractible. The patient's sensorium is alert and oriented to person and place. The patient did not participate in the memory assessment. Immediate memory appears to be intact. Short-term memory and long-term memory appear to be somewhat impaired. The patient did not participate in the interpretation of proverbs. Insight is poor. Judgment is compromised. DIAGNOSTIC IMPRESSION: AXIS I: 1. History of schizophrenia chronic paranoid type 2. Psychotic disorder, not otherwise specified. 3. Dementia with behavioral disturbance. AXIS II: Deferred. AXIS III: Please see history and physical by Dr. Epps. TREATMENT PLAN: The patient has been seen by Dr. Danielle for psychiatric evaluation and for the management of the patient's psychotropic medications. We will provide supportive psychotherapy to include reality orientation, reality differentiation, and reality integration. We will provide motivational enhancement for the patient to become compliant and accept all aspects of his care and treatment plan. We will encourage the patient to verbalize his concerns versus acting out. We will provide stress management skills to increase the patient's frustration tolerance. We will expect the patient to be able to demonstrate emotional and self-regulation prior to his discharge. We will continue to provide supportive therapy throughout the patient's hospital stay. Thank you Dr. Danielle for this consult and the opportunity to participate with you in this patient's care. JOB# [id number] MTDCon
[2017-09-23] MEDS: INSULIN ASPART SLIDING SCALE 100 UNITS/ML UNIT SUBQ SCH (06:35)
[2017-09-23] MEDS: Albuterol Nebulizer 2.5mg/3mL HHN SCH ×2 (07:25→19:13)
[2017-09-23] MEDS: Budesonide 0.5 Mg/2 mL Ud HHN SCH ×2 (07:32→19:13)
[2017-09-23] MEDS: Multivitamin Tab PO SCH (08:41)
[2017-09-23] MEDS: POLYETHYLENE GLYCOL 3350 17 GM PACK PO SCH (08:41)
[2017-09-23] MEDS: Lactobacillus Rhamnosus GG 15 Billion CFU CAP.SPRINK PO SCH ×2 (08:43→16:15)
[2017-09-23] MEDS: Fexofenadine 60 mg Tab PO SCH (08:43)
[2017-09-23] MEDS: Lactulose 10 Gm/15 mL 30mL UDC PO SCH (08:44)
--- NOTE | 2017-09-24 00:14 | Progress Notes ---
DATE: 09/23/2017 SUBJECTIVE: Staff was spoken to. The patient is interviewed. Mood is noted to be irritable. Affect is constricted. The patient is still somatically preoccupied. Insight and judgment at this time are noted to be still impaired. Impulse control seems to be limited. Coping skills are noted to be limited. ASSESSMENT: The patient is still impulsive. PLAN: To continue the patient with the supportive therapy, encouraged the patient to verbalize the concerns rather than to act out. The patient is still psychotic and is not ready to be discharged to a lower level of care. JOB# [id number]
[2017-09-24] MEDS: INSULIN ASPART SLIDING SCALE 100 UNITS/ML UNIT SUBQ SCH (06:33)
[2017-09-24] MEDS: Albuterol Nebulizer 2.5mg/3mL HHN SCH ×2 (07:13→19:30)
[2017-09-24] MEDS: Budesonide 0.5 Mg/2 mL Ud HHN SCH ×2 (07:13→19:30)
[2017-09-24] MEDS: POLYETHYLENE GLYCOL 3350 17 GM PACK PO SCH (09:11)
[2017-09-24] MEDS: Lactulose 10 Gm/15 mL 30mL UDC PO SCH (09:13)
[2017-09-24] MEDS: Lactobacillus Rhamnosus GG 15 Billion CFU CAP.SPRINK PO SCH ×2 (09:14→17:30)
[2017-09-24] MEDS: Multivitamin Tab PO SCH (09:15)
[2017-09-24] MEDS: Fexofenadine 60 mg Tab PO SCH (09:16)
--- NOTE | 2017-09-24 20:59 | Progress Notes ---
DATE: 09/24/2017 SUBJECTIVE: The patient was seen, chart reviewed, discussed with staff. The patient is compliant with his medication; however, still anxious, guarded, still easily agitated. The patient's insight and judgment remains impaired. ASSESSMENT: We will continue hospitalization. Continue stabilization. Continue medication management. The patient is receiving Seroquel 400 mg p.o. at bedtime and he is also on fentanyl patch for pain. He has some constipation. We will monitor closely for the time being. The patient is also receiving Effexor XR 150 mg p.o. every day to address his depressive symptoms. [facility]# [id number]
[2017-09-25] MEDS: INSULIN ASPART SLIDING SCALE 100 UNITS/ML UNIT SUBQ SCH (06:48)
[2017-09-25] MEDS: Albuterol Nebulizer 2.5mg/3mL HHN SCH ×2 (07:33→19:04)
[2017-09-25] MEDS: Budesonide 0.5 Mg/2 mL Ud HHN SCH ×2 (07:33→19:03)
[2017-09-25] MEDS: Multivitamin Tab PO SCH (10:02)
[2017-09-25] MEDS: Lactulose 10 Gm/15 mL 30mL UDC PO SCH (10:02)
[2017-09-25] MEDS: Lactobacillus Rhamnosus GG 15 Billion CFU CAP.SPRINK PO SCH ×2 (10:02→17:09)
[2017-09-25] MEDS: Fexofenadine 60 mg Tab PO SCH (10:02)
[2017-09-25] MEDS: POLYETHYLENE GLYCOL 3350 17 GM PACK PO SCH (10:02)
[2017-09-25] MEDS ORDERED: Probiotic Screen MC PRN (10:04)
[2017-09-25] MEDS: fentaNYL 50 mcg/hr Tdm Patch TD SCH (11:00)
--- NOTE | 2017-09-25 19:33 | Progress Notes ---
DATE: 09/25/2017 SUBJECTIVE: Staff was spoken to. The patient is interviewed. Mood is noted to be irritable. Affect is constricted. Insight and judgment are noted to be still impaired. Impulse control is noted to be poor. The patient has been fixated on his somatic concerns. The patient wants higher and higher doses of the Ambien and the Seroquel. ASSESSMENT: The patient is still psychotic and impulsive. PLAN: To continue the patient with the current medications and follow up. JOB# [id number]
[2017-09-26] MEDS: INSULIN ASPART SLIDING SCALE 100 UNITS/ML UNIT SUBQ SCH (06:36)
[2017-09-26] MEDS: Albuterol Nebulizer 2.5mg/3mL HHN SCH ×2 (08:05→19:33)
[2017-09-26] MEDS: Budesonide 0.5 Mg/2 mL Ud HHN SCH ×2 (08:05→19:33)
[2017-09-26] MEDS: Fexofenadine 60 mg Tab PO SCH (09:39)
[2017-09-26] MEDS: Lactulose 10 Gm/15 mL 30mL UDC PO SCH (10:02)
[2017-09-26] MEDS: Lactobacillus Rhamnosus GG 15 Billion CFU CAP.SPRINK PO SCH ×2 (10:04→16:55)
[2017-09-26] MEDS: Multivitamin Tab PO SCH (10:04)
[2017-09-26] MEDS: POLYETHYLENE GLYCOL 3350 17 GM PACK PO SCH (10:11)
--- NOTE | 2017-09-26 14:01 | Progress Notes ---
DATE: 09/26/2017 SUBJECTIVE: Staff was spoken to. The patient is interviewed. Mood is noted to be less irritable today. The patient's somatic preoccupation has been coming down. The patient is stating that he has been able to relax the last night once the Seroquel has been increased up to 400 mg at night time. The patient is able to verbalize the concerns and is stating that he has been trying to participate in the groups and he is not able to express some of his concerns. ASSESSMENT: The patient's somatic preoccupation is coming down. PLAN: To continue the patient with the supportive therapy, encouraged the patient to verbalize the concerns rather than to act out. JOB# [id number]
[2017-09-27] MEDS: INSULIN ASPART SLIDING SCALE 100 UNITS/ML UNIT SUBQ SCH (06:37)
[2017-09-27] MEDS: Albuterol Nebulizer 2.5mg/3mL HHN SCH (07:19)
[2017-09-27] MEDS: Budesonide 0.5 Mg/2 mL Ud HHN SCH (07:19)
[2017-09-27] MEDS: POLYETHYLENE GLYCOL 3350 17 GM PACK PO SCH (10:00)
[2017-09-27] MEDS: Lactulose 10 Gm/15 mL 30mL UDC PO SCH (10:00)
[2017-09-27] MEDS: Fexofenadine 60 mg Tab PO SCH (10:00)
[2017-09-27] MEDS: Multivitamin Tab PO SCH (10:00)
[2017-09-27] MEDS: Lactobacillus Rhamnosus GG 15 Billion CFU CAP.SPRINK PO SCH ×2 (10:00→17:29)
--- NOTE | 2017-09-27 20:08 | Discharge Summary ---
DATE OF DISCHARGE: 09/27/2017 IDENTIFYING DATA: The patient is a 76-year-old resident of [facility]. Information obtained directly interviewing the patient as well as reviewing the admission papers. JUSTIFICATION OF HOSPITALIZATION: The patient is admitted on a voluntary basis in view of his agitation and aggressive behaviors. CHIEF COMPLAINT: "I am not getting enough medical care." DIAGNOSES AT THE TIME OF ADMISSION: AXIS I: Psychotic disorder, not otherwise specified. IB. Dementia and behavioral change, secondary trait. AXIS II: None. AXIS III: As per Dr. Epps. HISTORY OF PRESENT ILLNESS: Please refer the 09/20/2017 dictation done by me. Physical examination was done by Dr. Epps and is noted to be significant for the patient having hypertension, COPD, seizure disorder, advanced RA, BPH, and atrial fibrillation. HOSPITAL COURSE AND RESPONSE TO TREATMENT: The patient has been observed on inpatient unit, provided with supportive psychotherapy. The patient has been asking for more and more of the Seroquel. The Seroquel was gradually increased to 400 mg at bedtime. The patient has been encouraged to participate in the groups and verbalize the concerns. The patient also has been placed on the venlafaxine 150 mg in the morning. With these medication the patient was observed, provided with supportive psychotherapy. The patient started to do fairly well and hence the patient was discharged on 09/27/2017 with recommendation that he is going to be seeking treatment on an outpatient basis. MENTAL STATUS EXAMINATION: At the time of discharge, the patient's mood is noted to be anxious. Affect is appropriate. Not suicidal or homicidal. Insight and judgment are fair. Impulse control is also noted to be fair. The patient is able to verbalize the concerns rather than to act out. The patient denies active hallucinations or delusions are noted. DIAGNOSTIC IMPRESSION: AXIS I: Bipolar disorder mixed with psychotic symptoms. AXIS II: None. AXIS III: Hypertension, congestive heart failure, benign prostatic hypertrophy, and atrial fibrillation. AFTERCARE PLAN: The patient is discharged to [facility] to be followed up on an outpatient basis. JOB# [id number]
== END 2017-09-27 17:25 | DRG 885 ==
LOC: GERO 21:34
PROVIDERS: ADMIT Psychiatry & Neurology Psychiatry; ATTEND Psychiatry & Neurology Psychiatry
DX: F31.64 Bipolar disorder, current episode mixed, severe, with psychotic features (principal); I11.0 Hypertensive heart disease with heart failure; F23 Brief psychotic disorder; E87.1 Hypo-osmolality and hyponatremia; N39.0 Urinary tract infection, site not specified; F03.91 Unspecified dementia, unspecified severity, with behavioral disturbance; I50.9 Heart failure, unspecified; J44.9 Chronic obstructive pulmonary disease, unspecified; G40.909 Epilepsy, unspecified, not intractable, without status epilepticus; E11.9 Type 2 diabetes mellitus without complications; M06.9 Rheumatoid arthritis, unspecified; N40.0 Benign prostatic hyperplasia without lower urinary tract symptoms; I48.91 Unspecified atrial fibrillation; G89.4 Chronic pain syndrome
CPT/HCPCS: 82948-90; 94640; 94760; J1815; J7613; J8610; Z7610

== ENCOUNTER 2017-10-03 19:13 | Inpatient (IN) | payer MEDICARE, OTHER ==
[2017-10-03] MEDS ORDERED: Sodium Chloride 0.9% 1,000 ML IV ONE (19:32)
--- NOTE | 2017-10-03 19:39 | ED Physician Chart ---
ED Chief Complaint/HPI - Patient Information Date Seen:: 10/03/17 Time Seen:: 19:20 Chief Complaint:: abdominal pain History of Present Illness:: Patient's had periumbilical pain and constipation for 4 days. No diarrhea. Allergies:: Allergies Allergy/AdvReac Type Severity Reaction Status Date / Time Penicillins [PCN] Allergy Verified 09/16/17 17:25 ACETRAM Allergy Uncoded 09/16/17 17:25 Vitals:: Vital Signs - 8 hr 10/03/17 19:17 Temp 97.9 F HR 88 RR 20 BP 124/87 O2 Sat % 97 Historian:: Patient Review:: Nurse's Note Reviewed ED Review of Systems - Review of Systems General/Constitutional: No fever, No chills Skin: No skin lesions Head: No headache Eyes: No loss of vision ENT: No earache Neck: No neck pain Cardio Vascular: No chest pain Pulmonary: No SOB GI: No nausea, No vomiting, Pain, Constipation G/U: No dysuria Musculoskeletal: No bone or joint pain, No back pain, No muscle pain Endocrine: No polyuria, No polydipsia Psychiatric: No prior psych history Hematopoietic: No bruising Allergic/Immuno: No urticaria Neurological: No syncope, No focal symptoms ED Past Medical History - Past Medical History Past Medical History: HTN, Other (rheumatoid arthritis; insomnia; atrial fibrillation) Family History: None Social History: Non Smoker, No Alcohol, Other (formerly smoked and drank some alcohol some alcohol) Surgical History: Hernia, other (bilateral inguinal hernia; foot surgery; ruptured appendix) Psychiatricy History: None Medication: Reviewed Family Medical History - Family Member Mother History Unknown: Yes Ethnicity: Unknown Living Status: Unknown Hx Family Cancer: (unknown) Hx Family Coronary Artery Disease: (unknown) Hx Family Congestive Heart Failure: (unknown) Hx Family Hypertension: (unknown) Hx Family Stroke: (unknown) Hx Family Diabetes: (unknown) Hx Family Seizures: (unknown) Hx Family Dementia: (unknown) Hx Family AIDS: (unknown) Hx Family HIV: No Hx Family COPD: (unknown) Hx Family Hepatitis: (unknown) Hx Family Psychiatric Problems: (unknown) Hx Family Tuberculosis: (unknown) ED Physical Exam - Physical Examination General/Constitutional: Awake Other Gen/Cons comments:: Mildly chronically ill-appearing; in no acute distress Head: Atraumatic Other Eyes comments:: Left eye enucleation Skin: Nl inspection ENMT: External ears, nose nl Neck: No nuchal rigidity Respiratory: Nl effort/Exclusion, Clear to Auscultation Other Cardio Vascular comments:: Irregular rhythm no murmur or extra sound GI: No organomegaly, No hernia, Normal BS's Other GI comments:: Lower abdominal tenderness : No CVA tenderness Other Extremities comments:: Arthritis of hands Neuro/Psych: No focal deficits ED Labs/Radiology/EKG Results - Radiology Results Results: Laboratory Results - last 24 hr 10/03/17 10/03/17 10/03/17 19:37 19:37 21:30 WBC 6.2 RBC 3.87 Hgb 12.9 Hct 38.3 L MCV 98.8 MCH 33.2 H MCHC Differential 33.6 RDW 14.6 Plt Count 195 MPV 6.7 Neutrophils % 74.6 Lymphocytes % 20.3 Monocytes % 3.4 Eosinophils % 0.8 Basophils % 0.9 Sodium 127 L Potassium 4.4 Chloride 95 L Carbon Dioxide 25.1 Anion Gap 11.3 BUN 15 Creatinine 0.8 Est GFR ( Amer) TNP Est GFR (Non-Af Amer) TNP BUN/Creatinine Ratio 18.8 Glucose 81 Calcium 9.7 Magnesium 2.1 Lipase 27 Urine Source RANDOM Urine Color YELLOW Urine Clarity CLOUDY Urine pH 7.5 Ur Specific Mellen 1.020 Urine Protein 30 H Urine Glucose (UA) NEGATIVE Urine Ketones TRACE Urine Blood LARGE H Urine Nitrate POSITIVE H Urine Bilirubin NEGATIVE Urine Urobilinogen 0.2 Ur Leukocyte Esterase LARGE H Urine RBC 5-10 H Urine WBC 50-100 H Ur Epithelial Cells MODERATE Urine Bacteria MANY H Comments:: CAT scan of abdomen and pelvis showed large amount of fecal content, runaway ileus and possible appendicolith ED Assessment - Assessment General Assessment: At 2235 patient had mild right lower quadrant tenderness without guarding ED Septic Shock - . Is Septic Shock (SBP<90, OR Lactate>4 mmol\L) present?: No - <6hrs of presentation: Vital Signs: Vital Signs - 8 hr 10/03/17 19:17 Temp 97.9 F HR 88 RR 20 BP 124/87 O2 Sat % 97 ED Reassessment (Disposition) - Reassessment Reassessment Condition:: Unchanged - Diagnosis Diagnosis:: Urinary tract infection; constipation; ileus - Patient Disposition Admitted to:: Med/Surg Spoke to:: Kayla Epps Admitting Medical Physician:: Kayla Epps Condition at Disposition:: Stable, Unchanged
[2017-10-03 19:42] LABS: % BASOPHILS 0.9 % (0.0-2.0); % EOSINOPHILS 0.8 % (0.0-5.0); % LYMPHOCYTES 20.3 % (20.0-50.0); % MONOCYTES 3.4 % (2.0-10.0); % NEUTROPHILS 74.6 % (40.0-80.0); BASOPHILE ABSOLUTE 0.1 Th/cumm (0-0.2); HEMATOCRIT 38.3 % (41.0-60); HEMOGLOBIN 12.9 gm/dL (12-16); LYMPHOCYTE ABSOLUTE 1.3 Th/cmm (1.5-3.0); MEAN CELL VOLUME 98.8 fl (80-99); MEAN CORPUSCULAR HEMOGLOBIN 33.2 pg (27.0-31.0); MEAN CORPUSCULAR HGB CONC 33.6 pg (28.0-36.0); MEAN PLATELET VOLUME 6.7 fl; MONOCYTE ABSOLUTE 0.2 Th/cmm (0.3-1.0); NEUTROPHILE ABSOLUTE 4.6 Th/cmm (1.8-8.0); PLATELET COUNT 195 Th/cmm (150-400); RED BLOOD COUNT 3.87 Mil/cmm (3.80-5.80); RED CELL DISTRIBUTION WIDTH 14.6 % (11.5-20.0); WHITE BLOOD COUNT 6.2 Th/cmm (4.8-10.8)
[2017-10-03 19:59] LABS: ANION GAP 11.3 (7.0-16.0); BUN - UREA NITROGEN 15 mg/dL (7-25); CALCIUM SERUM 9.7 mg/dL (8.6-10.3); CARBON DIOXIDE 25.1 mEq/L (21.0-31.0); CHLORIDE 95 mEq/L (98-107); CREATININE - SERUM 0.8 mg/dL (0.7-1.3); GLUCOSE 81 mg/dL (70-105); LIPASE 27 U/L (11-82); MAGNESIUM 2.1 mg/dL (1.9-2.7); POTASSIUM SERUM 4.4 mEq/L (3.5-5.1); SODIUM SERUM 127 mEq/L (136-145)
[2017-10-03 22:09] LABS: URINE MICROSCOPIC INDICATED? YES; URINE SOURCE RANDOM
[2017-10-03 22:18] LABS: URINE BILIRUBIN NEGATIVE (NEGATIVE); URINE BLOOD LARGE (NEGATIVE); URINE GLUCOSE (UA) NEGATIVE (NEGATIVE); URINE KETONE TRACE mg/dL (NEGATIVE); URINE LEUKOCYTE ESTERASE LARGE (NEGATIVE); URINE NITRATE POSITIVE (NEGATIVE); URINE PH 7.5 (4.6 - 8.0); URINE PROTEIN 30 mg/dL (NEGATIVE); URINE UROBILINOGEN 0.2 E.U./dL (0.2 - 1.0)
[2017-10-03 22:26] LABS: URINE COLOR YELLOW
[2017-10-03 22:27] LABS: URINE CLARITY CLOUDY (CLEAR)
[2017-10-03 22:29] LABS: URINE BACTERIA MANY /hpf (NONE SEEN); URINE EPITHELIAL CELLS MODERATE /lpf (FEW); URINE WBC 50-100 /hpf (0-5)
[2017-10-03] MEDS ORDERED: cefTRIAXone 1 GM in Sodium Chloride 0.9% 50 ML IV ONE (22:44)
[2017-10-04] MEDS ORDERED: Lactulose 10 Gm/15 mL 30mL UDC PO PRN (01:09)
[2017-10-04] MEDS ORDERED: Sodium Chloride 0.9% 1,000 ML IV ONE (01:09)
[2017-10-04] MEDS ORDERED: Morphine Sulfate 4 mg/mL 1mL Syr IVP PRN (01:23)
[2017-10-04] MEDS ORDERED: cefTRIAXone 1 GM in Sodium Chloride 0.9% 50 ML IV SCH (02:00)
[2017-10-04 06:33] LABS: % BASOPHILS 0.9 % (0.0-2.0); % EOSINOPHILS 0.9 % (0.0-5.0); % LYMPHOCYTES 20.3 % (20.0-50.0); % MONOCYTES 7.7 % (2.0-10.0); % NEUTROPHILS 70.2 % (40.0-80.0); BASOPHILE ABSOLUTE 0.1 Th/cumm (0-0.2); EOSINOPHILE ABSOLUTE 0.1 Th/cmm (0.1-0.4); HEMATOCRIT 35.6 % (41.0-60); HEMOGLOBIN 12.1 gm/dL (12-16); LYMPHOCYTE ABSOLUTE 1.1 Th/cmm (1.5-3.0); MEAN CELL VOLUME 98.3 fl (80-99); MEAN CORPUSCULAR HEMOGLOBIN 33.4 pg (27.0-31.0); MEAN CORPUSCULAR HGB CONC 33.9 pg (28.0-36.0); MEAN PLATELET VOLUME 7.3 fl; MONOCYTE ABSOLUTE 0.4 Th/cmm (0.3-1.0); NEUTROPHILE ABSOLUTE 3.9 Th/cmm (1.8-8.0); PLATELET COUNT 176 Th/cmm (150-400); RED BLOOD COUNT 3.62 Mil/cmm (3.80-5.80); RED CELL DISTRIBUTION WIDTH 14.1 % (11.5-20.0); WHITE BLOOD COUNT 5.6 Th/cmm (4.8-10.8)
[2017-10-04 06:44] LABS: ANION GAP 10.9 (7.0-16.0); BUN - UREA NITROGEN 13 mg/dL (7-25); CARBON DIOXIDE 21.1 mEq/L (21.0-31.0); CHLORIDE 98 mEq/L (98-107); CREATININE - SERUM 0.7 mg/dL (0.7-1.3); GLUCOSE 83 mg/dL (70-105); SODIUM SERUM 126 mEq/L (136-145)
[2017-10-04 07:40] VITALS: BP 140/68
--- NOTE | 2017-10-04 09:04 | Diagnostic Imaging Report ---
CT abdomen and pelvis without intravenous contrast Indication: Abdominal pain and constipation Comparison: None, Technique: Axial images were obtained from the lung bases to the bilateral proximal femurs without IV contrast. Coronal reconstructions were made. total DLP: 597, CTDI12.3 FINDINGS: Chronic lung changes seen with bibasal subsegmental atelectasis versus scarring. Assessment of the solid organs is limited due to lack of IV contrast. No evidence of focal hepatic or splenic lesions. Splenic artery calcifications are noted. The pancreas is poorly visualized on this examination. The adrenal glands are also poorly visualized. 2 cm left renal cyst is noted. No hydronephrosis. ' Prominent prostate gland is noted measuring 4.0 x 3.6 and there is a punctate calcification. Copious stool is seen throughout the colon. Gas-filled loops of bowel are noted. The appendix is not clearly visualized. There is a 1.5 cm calcification in the right lower quadrant. No inflammation along the right lower quadrant. No free fluid or free air. Diffuse atherosclerosis noted. Advanced degenerative changes of spine are noted with scoliosis. Old compression fracture of T12 is noted. IMPRESSION: Copious stool throughout the colon. There is a 1.5 cm calcification of the right lower quadrant. This is indeterminate and may be within the cecum or possibly an appendicolith. The appendix is not well-visualized. No surrounding inflammatory changes in right lower quadrant to suggest acute process, however, clinical correlation and follow-up is recommended. If indicated follow up CT examination with IV and oral contrast after 12 to 24 hours may also be obtained. Nonspecific fluid-filled loops of bowel. Underlying enteritis cannot be excluded. Mildly prominent prostate gland with mild mass effect upon the base of the urinary bladder. Severe atherosclerotic vascular disease. Severe degenerative changes spine with old compression fracture of T12 and spinal scoliosis.
[2017-10-04] MEDS ORDERED: Albuterol Nebulizer 2.5mg/3mL HHN PRN (09:25)
[2017-10-04] MEDS ORDERED: Lactobacillus Rhamnosus GG 15 Billion CFU CAP.SPRINK PO SCH (09:30)
[2017-10-04] MEDS ORDERED: METHOTREXATE SODIUM 15 MG PO SCH (09:30)
[2017-10-04] MEDS ORDERED: Fexofenadine 60 mg Tab PO SCH (09:30)
[2017-10-04] MEDS ORDERED: Multivitamin Tab PO SCH (09:45)
--- NOTE | 2017-10-04 11:17 | History & Physical ---
ADMIT DATE: 10/04/2017 CHIEF COMPLAINT: Abdominal pain x 4 days. HISTORY OF PRESENT ILLNESS: This is a 76-year-old male, who was admitted back on September 16 for psych decompensation, UTI, hyponatremia. He was eventually transferred to [facility] and was discharged a few days ago to [facility] where he resides. He presented to the ER last night complaining of diffuse abdominal pain and constipation. He denied any fever, chills, nausea, vomiting, or hematemesis, but did state that he has not had a bowel movement in 4 days. Other history includes hypertension, COPD, seizure disorder, advanced rheumatoid arthritis, BPH, atrial fib, and schizoaffective disorder. PAST MEDICAL HISTORY: As noted above. PAST SURGICAL HISTORY: Bilateral inguinal hernia repair, left eye surgery, and appendectomy many years ago. FAMILY HISTORY: Noncontributory. SOCIAL HISTORY: Previous smoker. Currently denies any smoking, no ETOH. He lives at [facility]. ALLERGIES: Allergic to PENICILLIN and ACUTRAM. OUTPATIENT MEDICATIONS: Fentanyl 1 patch every 72 hours, albuterol, DuoNeb b.i.d., Cipro 250 b.i.d., lactulose 20 every day, Tylenol 650 q.4 p.r.n. for moderate pain, bisacodyl 10 mg per rectum every day, budesonide 0.5 b.i.d. handheld, docusate sodium 250 b.i.d., fexofenadine 60 every day, folic acid 1 mg every day, Motrin 400 mg t.i.d., lactobacillus 1 tab b.i.d., Keppra 500 mg b.i.d., lorazepam 0.5 q.4 p.r.n. for anxiety, methotrexate 15 mg q. weekly, metoprolol 25 mg b.i.d., multivitamin every day, MiraLax 17 grams every day, Seroquel 300 at bedtime, Xarelto 20 every day, simethicone 30 mL q.4, sulfasalazine 200 b.i.d., Flomax 0.4 b.i.d., terazosin 5 at bedtime, venlafaxine 150 every day, and Ambien 5 at bedtime. REVIEW OF SYSTEMS: GENERAL: The patient denies any fever or chills, but he states that he thinks he has lost some weight over the last couple of weeks. CARDIAC: No chest pain, palpitations. PULMONARY: No cough, phlegm production. GASTROINTESTINAL: Please refer to the HPI. GENITOURINARY: He states he has chronic voiding issues including incomplete voiding that occasionally needs Link Cath placement. NEUROLOGIC: Denies any headaches and any syncope. PSYCH: He appears to be comfortable. No agitation as of since being discharged from here last week. PHYSICAL EXAMINATION: VITAL SIGNS: Temperature 97.0, pulse 75, respirations 18, BP 119/81, satting 99% on room air. GENERAL: He is a well-developed, thin male, awake, alert, and oriented x 2. He is in no distress. HEAD AND NECK: Normocephalic, atraumatic. NECK: There is no JVD or LAD. CARDIOVASCULAR: Irregularly irregular with no murmurs. LUNGS: Decreased at the bases, but clear to auscultation bilaterally. ABDOMEN: Soft, supple. There is no tenderness to palpation at this time and there is normoactive bowel sounds. EXTREMITIES: Lower extremities: No pedal edema. NEUROLOGIC: Grossly intact and nonfocal. LABORATORY DATA: CBC was essentially within normal limits. Sodium 127, chloride 95, otherwise chemistry was within normal limits. UA shows large blood, positive for nitrites and large leukocyte esterase, 5-10 RBCs and 50-100 WBCs, many bacteria. DIAGNOSTICS: Abdominal CT showed copious stools throughout the colon. There is 1.5 cm calcification of the right lower quadrant. This is intermediate; it may be within the cecum or possibly on appendicolith. Appendix is not visualized. IMPRESSION: 1. Abdominal pain, likely secondary to constipation. 2. Urinary tract infection. 3. History of benign prostatic hypertrophy. 4. Atrial fibrillation, currently rate controlled. 5. History of chronic hyponatremia. 6. History of schizoaffective disorder. 7. Essential hypertension. 8. History of chronic obstructive pulmonary disease, clinically stable. 9. History of advance RA 10. History of chronic hyponatremia. PLAN: The patient has been admitted to the medical floor for further management and care. The patient will be given a saline enema and will be placed on his all medications as scheduled. KUB will be asked for after the enema was given and as far as UTI. The patient has been placed on IV antibiotics and has been cultured. We will continue with all medications as scheduled. JOB# [id number] MTDD
--- NOTE | 2017-10-04 11:17 | Diagnostic Imaging Report ---
KUB single view HISTORY: Constipation COMPARISON: CT abdomen and pelvis on 10/03/2017 FINDINGS: Gas-filled loops of bowel are noted with distal fecal impaction. No gross free air. Degenerative changes of the spine are noted with scoliosis. IMPRESSION: Nonspecific Gas-filled loops of bowel with distal fecal impaction.
[2017-10-04] MEDS: Ciprofloxacin 200mg Premix PB 200 MG/100 ML BAG IV SCH ×2 (12:32→21:10)
[2017-10-04] MEDS ORDERED: VTE Chemical Prophylaxis Screen/Admission MC PRN (14:13)
[2017-10-04] MEDS: Lactobacillus Rhamnosus GG 15 Billion CFU CAP.SPRINK PO SCH (16:29)
[2017-10-04] MEDS: POLYETHYLENE GLYCOL 3350 17 GM PACK PO SCH (16:32)
[2017-10-04] MEDS: Lactulose 10 Gm/15 mL 30mL UDC PO SCH (16:33)
[2017-10-04] MEDS: INSULIN ASPART SLIDING SCALE 100 UNITS/ML UNIT SUBQ SCH ×2 (17:09→21:46)
[2017-10-04] MEDS: Multivitamin Tab PO SCH (17:15)
[2017-10-04] MEDS: Budesonide 0.5 Mg/2 mL Ud HHN SCH ×2 (19:28)
[2017-10-05] MEDS: INSULIN ASPART SLIDING SCALE 100 UNITS/ML UNIT SUBQ SCH ×4 (06:39→21:00)
[2017-10-05 06:48] LABS: ANION GAP 7.4 (7.0-16.0); BUN - UREA NITROGEN 8 mg/dL (7-25); CALCIUM SERUM 8.9 mg/dL (8.6-10.3); CARBON DIOXIDE 24.5 mEq/L (21.0-31.0); CHLORIDE 99 mEq/L (98-107); CREATININE - SERUM 0.8 mg/dL (0.7-1.3); GLUCOSE 85 mg/dL (70-105); MAGNESIUM 1.9 mg/dL (1.9-2.7); POTASSIUM SERUM 3.9 mEq/L (3.5-5.1); SODIUM SERUM 127 mEq/L (136-145)
[2017-10-05 06:59] LABS: % BASOPHILS 0.4 % (0.0-2.0); % EOSINOPHILS 1.8 % (0.0-5.0); % LYMPHOCYTES 26.3 % (20.0-50.0); % MONOCYTES 9.8 % (2.0-10.0); % NEUTROPHILS 61.7 % (40.0-80.0); EOSINOPHILE ABSOLUTE 0.1 Th/cmm (0.1-0.4); HEMATOCRIT 35.4 % (41.0-60); HEMOGLOBIN 12.2 gm/dL (12-16); LYMPHOCYTE ABSOLUTE 1.4 Th/cmm (1.5-3.0); MEAN CELL VOLUME 98.2 fl (80-99); MEAN CORPUSCULAR HEMOGLOBIN 33.7 pg (27.0-31.0); MEAN CORPUSCULAR HGB CONC 34.3 pg (28.0-36.0); MONOCYTE ABSOLUTE 0.5 Th/cmm (0.3-1.0); NEUTROPHILE ABSOLUTE 3.2 Th/cmm (1.8-8.0); PLATELET COUNT 164 Th/cmm (150-400); RED BLOOD COUNT 3.61 Mil/cmm (3.80-5.80); RED CELL DISTRIBUTION WIDTH 14.6 % (11.5-20.0); WHITE BLOOD COUNT 5.2 Th/cmm (4.8-10.8)
[2017-10-05] MEDS: Budesonide 0.5 Mg/2 mL Ud HHN SCH ×2 (07:27→19:30)
[2017-10-05] MEDS ORDERED: fentaNYL 100 mcg/hr Tdm Patch TD SCH (09:00)
[2017-10-05] MEDS: Lactobacillus Rhamnosus GG 15 Billion CFU CAP.SPRINK PO SCH ×2 (09:05→16:58)
[2017-10-05] MEDS: Multivitamin Tab PO SCH (09:05)
[2017-10-05] MEDS: Ferrous Sulfate 325 MG TAB PO SCH (09:06)
[2017-10-05] MEDS: Ciprofloxacin 200mg Premix PB 200 MG/100 ML BAG IV SCH ×2 (09:08→22:44)
[2017-10-05] MEDS: POLYETHYLENE GLYCOL 3350 17 GM PACK PO SCH (09:08)
[2017-10-05] MEDS: Lactulose 10 Gm/15 mL 30mL UDC PO SCH ×2 (09:08→16:58)
[2017-10-05] MEDS: Polyvinyl Alcohol Ophth Soln 15 mL Bottle EACH EYE PRN (09:36)
[2017-10-05] MEDS: Magnesium Hydroxide (MOM) 30 mL UDC PO PRN (11:35)
[2017-10-06] MEDS: Budesonide 0.5 Mg/2 mL Ud HHN SCH ×2 (07:33→18:56)
[2017-10-06] MEDS: Lactulose 10 Gm/15 mL 30mL UDC PO SCH ×2 (08:40→16:09)
[2017-10-06] MEDS: Ciprofloxacin 200mg Premix PB 200 MG/100 ML BAG IV SCH (08:40)
[2017-10-06] MEDS: POLYETHYLENE GLYCOL 3350 17 GM PACK PO SCH (08:40)
[2017-10-06] MEDS: Ferrous Sulfate 325 MG TAB PO SCH (08:41)
[2017-10-06] MEDS: INSULIN ASPART SLIDING SCALE 100 UNITS/ML UNIT SUBQ SCH ×4 (08:43→21:21)
[2017-10-06] MEDS: Multivitamin Tab PO SCH (08:43)
[2017-10-06] MEDS: Lactobacillus Rhamnosus GG 15 Billion CFU CAP.SPRINK PO SCH ×2 (08:43→16:08)
[2017-10-06] MEDS: Magnesium Hydroxide (MOM) 30 mL UDC PO PRN (08:46)
[2017-10-06] MEDS: Polyvinyl Alcohol Ophth Soln 15 mL Bottle EACH EYE PRN (08:46)
--- NOTE | 2017-10-06 09:23 | Diagnostic Imaging Report ---
KUB single view HISTORY: Fecal impaction COMPARISON: None FINDINGS: Mild to moderate generalized stool is noted. There is decrease in distal fecal impaction. Generalized gas-filled loops of bowel are noted. IMPRESSION: Mild to moderate generalized stool. There has been overall decrease in distal fecal impaction. Overall the bowel gas pattern is nonspecific.
[2017-10-06] MEDS: Gentamicin 180 MG in Sodium Chloride 0.9% 100 ML IV SCH (15:44)
[2017-10-07] MEDS: Gentamicin 180 MG in Sodium Chloride 0.9% 100 ML IV SCH ×2 (04:06→15:34)
[2017-10-07] MEDS: INSULIN ASPART SLIDING SCALE 100 UNITS/ML UNIT SUBQ SCH ×3 (07:16→17:41)
[2017-10-07] MEDS: Budesonide 0.5 Mg/2 mL Ud HHN SCH (07:39)
[2017-10-07] MEDS: Lactulose 10 Gm/15 mL 30mL UDC PO SCH ×2 (08:33→17:37)
[2017-10-07] MEDS: Ferrous Sulfate 325 MG TAB PO SCH (08:33)
[2017-10-07] MEDS: Multivitamin Tab PO SCH (08:34)
[2017-10-07] MEDS: Lactobacillus Rhamnosus GG 15 Billion CFU CAP.SPRINK PO SCH (08:34)
[2017-10-07] MEDS: POLYETHYLENE GLYCOL 3350 17 GM PACK PO SCH (08:36)
[2017-10-07] MEDS ORDERED: Probiotic Screen MC PRN (10:21)
[2017-10-07] MEDS: Magnesium Hydroxide (MOM) 30 mL UDC PO PRN (10:23)
[2017-10-07 18:02] LABS: CREATININE - SERUM 0.7 mg/dL (0.7-1.3)
--- NOTE | 2017-10-07 19:56 | Discharge Summary ---
DATE OF DISCHARGE: 10/07/2017 ADMITTING DIAGNOSES: 1. Abdominal pain secondary to distal fecal impaction. 2. Acute on chronic constipation. 3. Urinary tract infection. SECONDARY DIAGNOSES: Chronic hyponatremia, essential hypertension, history of COPD, history of advanced rheumatoid arthritis, history of psych disorder. DISCHARGE DIAGNOSES: 1. Abdominal pain secondary to distal fecal impaction, resolved. 2. Distal impaction, resolved. 3. Complicated ESBL E. coli UTI-on IV abxs. CONSULTANTS: No consultants were used during this admission. PROCEDURES: As below: On the 10/03/2017, he underwent a CT of the abdomen and pelvis showing copious stool throughout the colon. There is a 1.5 cm calcification of the right lower quadrant. This is indeterminate and may be within the cecum or possibly an appendicolith. The appendix is not visualized. There was a KUB on 10/04/2017 showing nonspecific gas filled loops of bowel with distal fecal impaction and a repeat KUB on the 10/06/2017 showed mild to moderate generalized stool. There has been an overall decrease in distal fecal impaction. The overall bowel gas pattern is nonspecific. DISCHARGE MEDICATIONS: Gentamicin per pharmacy IV x 7 more days, fentanyl patch q. 72 hours, DuoNeb b.i.d., lactulose 30 grams daily, Tylenol p.r.n. for pain or fever, Bisacodyl 10 mg per rectum every day, Pulmicort 0.5 b.i.d., docusate sodium 250 b.i.d., fexofenadine 60 every day, folic acid 1 mg every day, ibuprofen 400 mg t.i.d., lactobacillus 1 tab b.i.d., Keppra 500 mg b.i.d., lorazepam 0.5 q.4 h. p.r.n. for anxiety, methotrexate 15 mg every Saturday, metoprolol 25 mg b.i.d., multivitamins every day, Seroquel 300 at bedtime, Xarelto 20 every day, simethicone 30 mL q 4 h., Flomax 0.4 b.i.d., terazosin 5 at bedtime, venlafaxine 150 every day, zolpidem 5 at bedtime. BRIEF HOSPITAL COURSE: The patient is a 76-year-old gentleman who was previously admitted to this facility for psych decompensation, who presented to the ED with abdominal pain for a few days. He also reported lack of BMs and some urinary symptomatology which is somewhat chronic in his case. He was admitted to the medical floor and was placed on IV fluids and was given stool softeners as well as enemas with improvement of his symptomatology. By hospital day #2, he had improvement of his abdominal pain and did report multiple bowel movements after he got a saline enema. Initial urinalysis was noted to be positive and identification showed E. coli with ESBL, which was sensitive to gentamicin. He was previously on ciprofloxacin, but once results were available he otherwise was changed to gentamicin. He has remained stable throughout his hospital stay. He reported both bladder and bowel improvement after a couple of days after admission. CONDITION ON DISCHARGE: Stable. DISPOSITION: Transferred back to [facility]. JOB# [id number] MTDCon
== END 2017-10-07 18:50 | DRG 389 ==
LOC: ER 19:13 → MSI 10-04 00:04
PROVIDERS: ADMIT Internal Medicine; ATTEND Internal Medicine
DX: K56.41 Fecal impaction (principal); N39.0 Urinary tract infection, site not specified; E87.1 Hypo-osmolality and hyponatremia; K56.7 Ileus, unspecified; N40.0 Benign prostatic hyperplasia without lower urinary tract symptoms; I48.91 Unspecified atrial fibrillation; B96.20 Unspecified Escherichia coli [E. coli] as the cause of diseases classified elsewhere; I10 Essential (primary) hypertension; G40.909 Epilepsy, unspecified, not intractable, without status epilepticus; M19.90 Unspecified osteoarthritis, unspecified site; M06.9 Rheumatoid arthritis, unspecified; J44.9 Chronic obstructive pulmonary disease, unspecified; Z88.0 Allergy status to penicillin; Z88.8 Allergy status to other drugs, medicaments and biological substances; Z87.891 Personal history of nicotine dependence
CPT/HCPCS: 36415-UA; 74000-TC; 80048-TC; 80170-TC; 81001-TC; 82565-TC; 82948-90; 83690-TC; 83735-TC; 84520-TC; 85025-TC; 87086-90; 94640; 94760; J0696; J0744; J1580; J1815; J7030; Z7610

== ENCOUNTER 2019-08-07 17:07 | Inpatient (IN) | payer MEDICARE, MEDICAID ==
[2019-08-11 23:36] VITALS: BP 140/91
[2019-08-12] MEDS ORDERED: Magnesium Hydroxide (MOM) 30 mL UDC PO PRN (00:26)
[2019-08-12] MEDS: Multivitamin w/ Minerals Tab PO SCH (09:05)
[2019-08-12] MEDS: Apixaban 5 MG TABLET PO SCH ×2 (09:05→16:13)
[2019-08-12] MEDS: NYSTATIN 100000 UNITS/GM POWD TP SCH (17:02)
--- NOTE | 2019-08-12 18:08 | Psychiatric Evaluation ---
DATE OF SERVICE: 08/12/2019 JUSTIFICATION FOR HOSPITALIZATION: "Emotional pain." HISTORY OF PRESENT ILLNESS: A 78-year-old male sent to the [facility] from a [facility], admitted to [facility], medically treated at [facility] for hypertension, AFib, UTI, arthritis, medically cleared and sent here. The patient was originally sent because he was so aggressive, agitated, yelling, screaming, [facility]ci could not control his behaviors. He was demanding to leave the facility, threatening to walk to [place], was really aggressive with staff. PAST PSYCHIATRIC HISTORY: History of bipolar per history. Under medical, please see full H and P. SOCIAL HISTORY: Born in [place]. States he is , no kids, currently disabled. MEDICAL HISTORY: Noted. MENTAL STATUS EXAMINATION: Disheveled, unkempt, fair eye contact, ruminative. Mood "bad." Affect flat. Thought processes were tangential. No overt SI or HI. Concerns for underlying psychosis, very suspicious of staff, paranoid, very fixated on going to [place]. Poor insight, poor judgment, and poor impulse control. CURRENT DIAGNOSIS: Bipolar. Under medical, please see full H and P. ESTIMATED LENGTH OF STAY: 7-10 days. ASSESSMENT: The patient requiring hospitalization, aggressive, agitated, uncontrollable behaviors. PLAN: We will restart medications. TREATMENT PLAN: Includes group as well as milieu therapy. CONDITIONS FOR DISCHARGE: Improved mood, improved affect, better control of any psychotic or agitated symptoms. [facility]# [id number]
[2019-08-12] MEDS ORDERED: Fleet Enema 135 mL RC PRN (19:45)
[2019-08-12] MEDS ORDERED: Maalox 30 mL Cup PO PRN (19:45)
--- NOTE | 2019-08-12 20:28 | History & Physical ---
ADMIT DATE: 08/11/2019 HISTORY OF PRESENT ILLNESS: The patient is a 78-year-old male with long history of chronic atrial fibrillation, hypertension, rheumatoid arthritis, chronic pain, bipolar disorder, admitted to [facility] with urinary infection, and hyponatremia. The patient also was seen by Psychiatry for his agitation. The patient was put on 5150 and transferred to [facility] under Dr. Wright's service. The patient is still complaining of pain, no nausea, no vomiting, no fever, no chills. PAST MEDICAL HISTORY: Significant for chronic atrial fibrillation, hypertension, rheumatoid arthritis, constipation, chronic pain, and bipolar disorder. PAST SURGICAL HISTORY: No recent surgery. ALLERGIES: None. MEDICATIONS: Follow admission reconciliation. SOCIAL HISTORY: No smoking, no alcohol, no drug. FAMILY HISTORY: Noncontributory. REVIEW OF SYSTEMS: RENAL SYSTEM: No history of chronic renal disorder. CARDIOVASCULAR SYSTEM: He has history of hypertension, chronic atrial fibrillation. ENDOCRINE SYSTEM: No diabetes or thyroid problem. GASTROINTESTINAL SYSTEM: No upper or lower gastrointestinal bleed. NEUROLOGICAL SYSTEM: No seizure disorder. SKELETOMUSCULAR SYSTEM: He has advanced rheumatoid arthritis and weakness of both lower extremities. HEMATOLOGICAL SYSTEM: No bleeding tendencies. RESPIRATORY SYSTEM: No asthma. GENITOURINARY: No dysuria or hematuria. He has recent urinary infection was treated with antibiotic. PHYSICAL EXAMINATION: GENERAL: He is awake, alert, oriented. VITAL SIGNS: Temperature 98.6, heart rate 104, blood pressure 149/76. HEENT: Pupils reacting equal to light and accommodation. Sclerae clear. NECK: Supple. Negative for lymphadenopathy, JVD or bruit. CHEST: Entry of air bilaterally normal. No rhonchi or wheezing. HEART: S1, S2 normal. No gallop rhythm. ABDOMEN: Soft, bowel sounds positive. EXTREMITIES: No edema. BACK: Normal vertebra. GENITALIA AND RECTAL: Done by primary physician, no complaint. NEUROLOGIC: He is awake, alert, oriented. Cranial nerve #1: The patient is able to smell different odor. Cranial nerve #2: The patient is able to read printed page. Cranial nerve #3: The patient able to move eyeball upward and outward. Cranial nerve #4: The patient is able to move eyeball inward and downward. Cranial nerve #5: The patient able to clench teeth, has normal sensation to forehead. Cranial nerve #6: The patient is able to move eyeball lateral on both sides. Cranial nerve #7: The patient is able to move eyebrow upwards on both sides. Cranial nerve #8: The patient is able to hear finger rubs on both sides. Cranial nerve #9: The patient has a normal gag reflex. Cranial nerve #10: The patient is able to move soft palate upward on each side. Cranial nerve #11: The patient able to shrink shoulder on both sides. Cranial nerve #12: The patient able to stick tongue straight. Motor and sensory, gait, the patient is unable to walk. Deep tendon reflexes are weak in both knees. Sensory examination is normal. SKIN: Intact. ASSESSMENT: 1. Chronic atrial fibrillation. 2. Hypertension. 3. Rheumatoid arthritis. 4. Constipation. 5. Chronic pain syndrome. 6. Bipolar disorder. PLAN: The patient in the hospital under Dr. Wright's service. Medical problems addressed during hospitalization bipolar disorder. Medical problem addressed at discharge are chronic, atrial fibrillation, hypertension, rheumatoid arthritis and chronic pain. The patient is medically stable for activity. Thank you, Dr. Wright, for asking me to see your patient. The patient is a full code. Medically stable for activity. JOB# [id number]
[2019-08-13] MEDS: Pantoprazole 40 mg EC Tab PO SCH (06:58)
[2019-08-13] MEDS: Apixaban 5 MG TABLET PO SCH ×2 (08:58→16:47)
[2019-08-13] MEDS: Multivitamin w/ Minerals Tab PO SCH (08:58)
[2019-08-13] MEDS ORDERED: Docusate Sodium/Senna Tab PO SCH (09:00)
[2019-08-13] MEDS ORDERED: Apixaban 5 MG TABLET PO SCH (09:00)
[2019-08-13] MEDS: NYSTATIN 100000 UNITS/GM POWD TP SCH ×2 (09:03→16:49)
--- NOTE | 2019-08-13 14:19 | Progress Notes ---
DATE: 08/13/2019 SUBJECTIVE: The patient in the hospital had been aggressive, agitated, coming from a [facility]. Mostly withdrawn, keeps to self, not really saying much to me. Multiple medical problems; UTI, arthritis. Time was spent with the patient, but he does not say much to me, just complains of some pain. Staff noting he is mostly withdrawn, keeps to self, had been medically cleared at [facility]. Noted to be withdrawn, paranoid, ongoing symptoms, safety concerns, angry, yelling at staff. Medications were noted. Labs were reviewed. Vitals reviewed, blood pressure 141/98, pulse of 72. Medications were noted. We will continue inpatient monitoring. JOB# [id number]
--- NOTE | 2019-08-13 16:55 | Internal Medicine Prog Note ---
Internal Medicine Subjective - Subjective Service Date: 08/13/19 Patient seen and examined:: without staff (HE STILL COMPLAINING OF PAIN) Patient is:: awake, verbal, in bed, talking, confused Per staff patient has:: no adverse event Internal Medicine Objective - Physical Exam Vitals and I&O: Vital Signs Temp 98.2 F 08/13/19 05:15 Pulse 89 08/13/19 16:47 Resp 17 08/13/19 08:00 BP 143/80 08/13/19 16:47 Pulse Ox 98 08/13/19 05:15 Intake & Output 08/12/19 08/13/19 08/13/19 18:59 06:59 18:59 Intake Total 600 Balance 600 Intake: Oral 600 Other: # Voids 2 # Bowel Movements 0 Active Medications: Current Medications Al Hydrox/Mg Hydrox/Simethicone (Maalox) 30 ml PO Q4HR PRN PRN Reason: GI DISTRESS Stop: 10/11/19 19:44 Last Admin: 08/12/19 21:42 Dose: 30 ml Bisacodyl (Dulcolax 10 Mg Supp) 10 mg RC DAILY PRN PRN Reason: Constipation Stop: 10/11/19 00:20 Duloxetine HCl (Cymbalta) 60 mg PO BID [facility]; Protocol Stop: 10/12/19 08:59 Last Admin: 08/13/19 16:47 Dose: 60 mg Folic Acid (Folate) 1 mg PO DAILY [facility] Stop: 10/11/19 08:59 Last Admin: 08/13/19 08:59 Dose: 1 mg Lorazepam (Ativan) 0.5 mg PO Q4HR PRN; Protocol PRN Reason: Anxiety Stop: 09/11/19 01:07 Magnesium Hydroxide (Milk Of Magnesia) 30 ml PO HS PRN PRN Reason: Constipation Stop: 10/11/19 19:44 Methotrexate (Methotrexate) 7.5 mg PO QMON [facility]; Protocol Stop: 10/11/19 07:29 Metoprolol Tartrate (Lopressor) 25 mg PO BID [facility] Stop: 10/12/19 08:59 Last Admin: 08/13/19 16:47 Dose: 25 mg Nystatin (Nystop) 0 units TP BID [facility] Stop: 10/11/19 16:59 Last Admin: 08/13/19 16:49 Dose: 100,000 units Pantoprazole Sodium (Protonix) 40 mg PO QDAC [facility] Stop: 10/12/19 07:29 Last Admin: 08/13/19 06:58 Dose: 40 mg Prednisone (Deltasone) 5 mg PO DAILY [facility] Stop: 10/11/19 08:59 Last Admin: 08/13/19 09:01 Dose: 5 mg Quetiapine Fumarate (Seroquel) 25 mg PO TID [facility]; Protocol Stop: 10/11/19 20:59 Last Admin: 08/13/19 14:38 Dose: 25 mg Quetiapine Fumarate (Seroquel) 100 mg PO HS [facility]; Protocol Stop: 10/11/19 20:59 Senna (Senna) 17.2 mg PO DAILY [facility] Stop: 10/11/19 08:59 Last Admin: 08/13/19 08:59 Dose: 17.2 mg Simethicone (Mylicon) 80 mg PO QID PRN PRN Reason: Gas Stop: 10/11/19 00:40 Last Admin: 08/13/19 16:47 Dose: 80 mg Tramadol HCl (Ultram) 50 mg PO Q6HR PRN PRN Reason: Pain (Moderate 4-6) Stop: 10/11/19 19:44 Trazodone HCl (Desyrel) 50 mg PO HS [facility]; Protocol Stop: 10/11/19 20:59 Last Admin: 08/12/19 21:41 Dose: 50 mg Zolpidem Tartrate (Ambien) 5 mg PO HS PRN PRN Reason: Insomnia Stop: 10/11/19 01:07 General: alert, demented Neck: Supple, No JVD, No thyromegaly, +2 carotid pulse wo bruit, No LAD Lungs: CTAB Cardiovascular: RRR, Normal S1, Normal S2, without murmur Abdomen: non-tender, non-distended Extremities: clear, deformity Neurological: no change Internal Medicine Assmt/Plan - Assessment Assessment: 1.CHRONIC A FIB. 2.HTN. 3.RHEUMATOID ARTHRITIS. 4.BIPOLAR DIISORDER - Plan Plan: CONTINUE ON CURRENT MEDICATION AND DIET
[2019-08-13] MEDS: Magnesium Hydroxide (MOM) 30 mL UDC PO PRN (22:43)
[2019-08-14] MEDS: Pantoprazole 40 mg EC Tab PO SCH (06:39)
[2019-08-14] MEDS: Multivitamin w/ Minerals Tab PO SCH (08:22)
[2019-08-14] MEDS: Apixaban 5 MG TABLET PO SCH ×2 (08:22→16:09)
[2019-08-14] MEDS: NYSTATIN 100000 UNITS/GM POWD TP SCH ×2 (08:22→16:10)
--- NOTE | 2019-08-14 16:10 | Progress Notes ---
DATE: 08/14/2019 SUBJECTIVE: The patient is in the hospital. No respiratory distress. No outbursts, generally calm, but still fixated ongoing to [place]. He has gotten no nursing home there, so this may be challenging. He is focused on going to [facility]. Fair orientation and upset, angry. The patient was coming in from [facility], they are hoping he can go to [facility] because he really wants to be in [place] because his primary doctors apparently there. The patient yelling at staff, gets angry, upset. Yells, impulsive, unpredictable. Medications were reviewed. Labs were reviewed. Vitals were reviewed, currently on dosing of Seroquel. Vitals, blood pressure 124/79, pulse of 100. MENTAL STATUS EXAMINATION: Stated age. Fair eye contact. Mood "not good." Affect angry. Thought processes were grossly linear. No SI, no HI, somewhat suspicious, concerns for paranoia, not trusting staff. PLAN: We will continue to monitor, encourage medication compliance. Currently on dosing of Seroquel. We are looking into some alternative placement for the patient. JOB# [id number]
--- NOTE | 2019-08-14 20:43 | Internal Medicine Prog Note ---
Internal Medicine Subjective - Subjective Service Date: 08/14/19 Patient seen and examined:: without staff (HE FEELS BETTER) Patient is:: awake, verbal, in bed, talking, confused Per staff patient has:: no adverse event Internal Medicine Objective - Physical Exam Vitals and I&O: Vital Signs Temp 99.3 F 08/14/19 20:14 Pulse 81 08/14/19 20:14 Resp 20 08/14/19 20:14 BP 141/83 08/14/19 20:14 Pulse Ox 97 08/14/19 20:14 Intake & Output 08/14/19 08/14/19 08/15/19 06:59 18:59 06:59 Intake Total 240 900 120 Balance 240 900 120 Intake: Oral 240 900 120 Other: # Voids 2 3 1 # Bowel Movements 0 0 0 Active Medications: Current Medications Al Hydrox/Mg Hydrox/Simethicone (Maalox) 30 ml PO Q4HR PRN PRN Reason: GI DISTRESS Stop: 10/11/19 19:44 Last Admin: 08/12/19 21:42 Dose: 30 ml Bisacodyl (Dulcolax 10 Mg Supp) 10 mg RC DAILY PRN PRN Reason: Constipation Stop: 10/11/19 00:20 Duloxetine HCl (Cymbalta) 60 mg PO BID [facility]; Protocol Stop: 10/12/19 08:59 Last Admin: 08/14/19 16:09 Dose: 60 mg Folic Acid (Folate) 1 mg PO DAILY [facility] Stop: 10/11/19 08:59 Last Admin: 08/14/19 08:22 Dose: 1 mg Lorazepam (Ativan) 0.5 mg PO Q4HR PRN; Protocol PRN Reason: Anxiety Stop: 09/11/19 01:07 Magnesium Hydroxide (Milk Of Magnesia) 30 ml PO HS PRN PRN Reason: Constipation Stop: 10/11/19 19:44 Last Admin: 08/13/19 22:43 Dose: 30 ml Methotrexate (Methotrexate) 7.5 mg PO QMON [facility]; Protocol Stop: 10/11/19 07:29 Metoprolol Tartrate (Lopressor) 25 mg PO BID [facility] Stop: 10/12/19 08:59 Last Admin: 08/14/19 16:09 Dose: 25 mg Nystatin (Nystop) 0 units TP BID [facility] Stop: 10/11/19 16:59 Last Admin: 08/14/19 16:10 Dose: 100,000 units Pantoprazole Sodium (Protonix) 40 mg PO QDAC [facility] Stop: 10/12/19 07:29 Last Admin: 08/14/19 06:39 Dose: 40 mg Prednisone (Deltasone) 5 mg PO DAILY [facility] Stop: 10/11/19 08:59 Last Admin: 08/14/19 08:23 Dose: 5 mg Quetiapine Fumarate (Seroquel) 25 mg PO TID [facility]; Protocol Stop: 10/11/19 20:59 Last Admin: 08/14/19 14:07 Dose: Not Given Quetiapine Fumarate (Seroquel) 100 mg PO HS [facility]; Protocol Stop: 10/11/19 20:59 Last Admin: 08/13/19 21:47 Dose: 100 mg Senna (Senna) 17.2 mg PO DAILY [facility] Stop: 10/11/19 08:59 Last Admin: 08/14/19 08:23 Dose: 17.2 mg Simethicone (Mylicon) 80 mg PO QID PRN PRN Reason: Gas Stop: 10/11/19 00:40 Last Admin: 08/13/19 16:47 Dose: 80 mg Tramadol HCl (Ultram) 50 mg PO Q6HR PRN PRN Reason: Pain (Moderate 4-6) Stop: 10/11/19 19:44 Trazodone HCl (Desyrel) 50 mg PO HS [facility]; Protocol Stop: 10/11/19 20:59 Last Admin: 08/13/19 20:13 Dose: 50 mg Zolpidem Tartrate (Ambien) 5 mg PO HS PRN PRN Reason: Insomnia Stop: 10/11/19 01:07 General: alert, demented Neck: Supple, No JVD, No thyromegaly, +2 carotid pulse wo bruit, No LAD Lungs: CTAB Cardiovascular: RRR, Normal S1, Normal S2, without murmur Abdomen: non-tender, non-distended Extremities: clear, deformity Neurological: no change Internal Medicine Assmt/Plan - Assessment Assessment: 1.CHRONIC A FIB. 2.HTN. 3.RHEUMATOID ARTHRITIS. 4.BIPOLAR DISORDER. - Plan Plan: CONTINUE ON CURRENT MEDICATION AND DIET Nutritional Asmnt/Malnutr-PDOC - Dietary Evaluation Malnutrition Findings (Please click <Entered> for more info): Nutritional Asmnt/Malnutrition Start: 08/14/19 15: 56 Text: Status: Complete Freq: Protocol: Document 08/14/19 15:56 ASHIA (Rec: 08/14/19 16:00 ASHIA [email or web address] [id number]) Nutritional Asmnt/Malnutrition Patient General Information Nutritional Screening Moderate Risk Diagnosis Psychosis Pertinent Medical Hx/Surgical Hx Chronic AFib, HTN, RA, Chronic Pain, Bipolar disorder, Constipation Subjective Information Pt is a 78-year-old male admitted on 08/10 d/t aggressive behavior with agitation and yelling. Pt is eating an estimated 75% of meals Per Meal/Nutrition Activity Record . Dietary is currently providing an estimated 1900 kcals and 90 gm Pro, per Pt PO intake this is providing an estimated 1425 kcals and 68gm Pro to meet 75% kcal and 85% Pro needs. Provided education to Diet clerks on K2 diet. Spoke with pt nurse Christian and pt DINH Adams about low potassium snacks to offer pt. Placed low K snacks with pt label in pt refrigerator. Visited pt in room, pt was awake and alert. Pt stated he is having trouble with BMs and has been receiving prune juice. I educated nurse Gino on trying other methods as prune juice is high in potassium. Let nurse know pt requested a PT eval and a wheelchair to get moving around. Pt also stated he does not have many teeth but does not like the mushy pureed foods. Spoke with nurse about speaking with MD to possibly upgrade diet Rx to mechanical soft chopped per pt request and MD assessment. Per wound care note (08/11), Intrinsic factors that delay wound healing: COPD, Asthma, Extrinsic factors that delay wound healing: Decreased mobility. Pt present with IAD with erythema in Perineal, APOLINAR Inguinal, and Scrotal areas. Anthropometrics HT: 62 WT: 170 LB (77.27 kg) BMI: 21.83 (normal) GI/ Skin Integrity GI: WNL, Soft, Non-tender BM: 08/11 x1 I/O: 1240/Not Noted Skin: Area of concern- redness , IAD with ertythema Rayo: 15 Diet Order: Pureed, PRAKASH, K2 Estimated Energy Needs: ( Geriatric, CBW) 9501-5356 kcals (25-30 kcals/ kg) 80-90g Pro (1.0-1.2 g/kg) 2839-8462 ml (25-30 ml/kg) Current Diet Order/ Nutrition Support Pureed, PRAKASH, K2 Pertinent Medications Maalox (PRN), Dulcolax (PRN), MOM (PRN), Protonix, Senna, Mylicon (PRN) Pertinent Labs 08/08: Na 133, Ca 8.2 08/07: Ca 7.9, T Protein 6.3, Alb 2.7 08/06: Cl 93, Alb 2.8, Ca 7.7, T Protein 6.1, Tags 26, A1c 5.3 % Nutritional Hx/Data Height 1.88 m Height (Calculated Centimeters) 188.0 Current Weight (lbs) 77.111 kg Weight (Calculated Kilograms) 77.1 Weight (Calculated Grams) 40585.7 [place] Body Weight 190 LB (86.36 kg) % [place] Body Weight 89 Body Mass Index (BMI) 21.8 Weight Status Approriate GI Symptoms Last BM 08/11 x1 Skin Integrity/Comment: Skin: Area of concern- redness , IAD with ertythema Rayo: 15 Current %PO Good (75-100%) Estimated Nutritional Goals BEE in Kcals: Using Current wt Calories/Kcals/Kg 20-25 Kcals Calculated 8560-2608 Protein: Using Current wt Protein g/k.0-1.2 Protein Calculated 80-90 Fluid: ml 7319-2157 ml (25-30 ml/kg) Nutritional Problem No current Nutrition Prob Problem No nutrition diagnosis at this time. Etiology N/A Signs/Symptoms: N/A Malnutrition Related to Morbid Obesity Malnutrition related to morbid obesity No Intervention/Recommendation Comments Continue Pureed, PRAKASH, K2 diet as tolerated. Expected Outcomes/Goals Expected Outcomes/Goals 1.PO intake to continue to meet 75% of estimated nutritional needs. 2.Monitor PO intake, wt, nutrition related labs, and skin integrity to trend WNL. 3.F/U as low risk in 7-10 days , 08/20-08/23
[2019-08-15] MEDS: Pantoprazole 40 mg EC Tab PO SCH (06:49)
[2019-08-15] MEDS: Multivitamin w/ Minerals Tab PO SCH (08:33)
[2019-08-15] MEDS: NYSTATIN 100000 UNITS/GM POWD TP SCH ×2 (08:33→16:53)
[2019-08-15] MEDS: Apixaban 5 MG TABLET PO SCH ×2 (08:33→16:52)
[2019-08-15] MEDS ORDERED: Fleet Enema 135 mL RC ONE (13:24)
--- NOTE | 2019-08-15 13:28 | General Progress Note ---
Subjective - Review of Systems Service Date: 08/15/19 Subjective: resting comfortably no distress Objective - Physical Exam Vitals and I&O: Vital Signs Temp 98.6 F 08/15/19 06:10 Pulse 99 08/15/19 08:33 Resp 19 08/15/19 06:10 BP 120/55 08/15/19 08:33 Pulse Ox 97 08/15/19 06:10 Intake & Output 08/14/19 08/15/19 08/15/19 18:59 06:59 18:59 Intake Total 900 180 Balance 900 180 Intake: Oral 900 180 Other: # Voids 3 2 # Bowel Movements 0 0 Active Medications: Current Medications Al Hydrox/Mg Hydrox/Simethicone (Maalox) 30 ml PO Q4HR PRN PRN Reason: GI DISTRESS Stop: 10/11/19 19:44 Last Admin: 08/12/19 21:42 Dose: 30 ml Bisacodyl (Dulcolax 10 Mg Supp) 10 mg RC DAILY PRN PRN Reason: Constipation Stop: 10/11/19 00:20 Docusate Sodium (Colace) 100 mg PO BID [facility] Stop: 10/14/19 16:59 Duloxetine HCl (Cymbalta) 60 mg PO BID [facility]; Protocol Stop: 10/12/19 08:59 Last Admin: 08/15/19 08:33 Dose: 60 mg Folic Acid (Folate) 1 mg PO DAILY [facility] Stop: 10/11/19 08:59 Last Admin: 08/15/19 08:33 Dose: 1 mg Lorazepam (Ativan) 0.5 mg PO Q4HR PRN; Protocol PRN Reason: Anxiety Stop: 09/11/19 01:07 Magnesium Hydroxide (Milk Of Magnesia) 30 ml PO HS PRN PRN Reason: Constipation Stop: 10/11/19 19:44 Last Admin: 08/13/19 22:43 Dose: 30 ml Methotrexate (Methotrexate) 7.5 mg PO QMON [facility]; Protocol Stop: 10/11/19 07:29 Metoprolol Tartrate (Lopressor) 25 mg PO BID [facility] Stop: 10/12/19 08:59 Last Admin: 08/15/19 08:33 Dose: 25 mg Nystatin (Nystop) 0 units TP BID [facility] Stop: 10/11/19 16:59 Last Admin: 08/15/19 08:33 Dose: 100,000 units Pantoprazole Sodium (Protonix) 40 mg PO QDAC [facility] Stop: 10/12/19 07:29 Last Admin: 08/15/19 06:49 Dose: 40 mg Prednisone (Deltasone) 5 mg PO DAILY [facility] Stop: 10/11/19 08:59 Last Admin: 08/15/19 08:33 Dose: 5 mg Quetiapine Fumarate (Seroquel) 25 mg PO TID [facility]; Protocol Stop: 10/11/19 20:59 Last Admin: 08/15/19 08:33 Dose: 25 mg Quetiapine Fumarate (Seroquel) 100 mg PO HS [facility]; Protocol Stop: 10/11/19 20:59 Last Admin: 08/14/19 21:20 Dose: 100 mg Senna (Senna) 17.2 mg PO DAILY [facility] Stop: 10/11/19 08:59 Last Admin: 08/15/19 08:34 Dose: 17.2 mg Simethicone (Mylicon) 80 mg PO QID PRN PRN Reason: Gas Stop: 10/11/19 00:40 Last Admin: 08/13/19 16:47 Dose: 80 mg Sodium Phosphate (Fleet Enema) 135 ml RC X1 [facility] Stop: 08/15/19 13:25 Tramadol HCl (Ultram) 50 mg PO Q6HR PRN PRN Reason: Pain (Moderate 4-6) Stop: 10/11/19 19:44 Trazodone HCl (Desyrel) 50 mg PO HS [facility]; Protocol Stop: 10/11/19 20:59 Last Admin: 08/14/19 21:20 Dose: 50 mg Zolpidem Tartrate (Ambien) 5 mg PO HS PRN PRN Reason: Insomnia Stop: 10/11/19 01:07 Last Admin: 08/14/19 21:20 Dose: 5 mg General: No acute distress HEENT: Atraumatic, PERRLA Neck: Supple, JVD, Thyromegaly Cardiovascular: Regular rate, Normal S1, Normal S2 Lungs: Clear to auscultation Abdomen: Bowel sounds, Soft Assessment/Plan - Assessment Assessment: 1.CHRONIC A FIB. 2.HTN. 3.RHEUMATOID ARTHRITIS. 4.BIPOLAR DISORDER. 5.CHRONIC CONSTIPATION 6.CHRONIC MALNUTRITION - Plan Plan: FLEETS ENEMA STOOL SOFTENER CONTINUE CURRENT TREATMENT Nutritional Asmnt/Malnutr-PDOC - Dietary Evaluation Malnutrition Findings (Please click <Entered> for more info): Nutritional Asmnt/Malnutrition Start: 08/14/19 15: 56 Text: Status: Complete Freq: Protocol: Document 08/14/19 15:56 ASHIA (Rec: 08/14/19 16:00 ASHIA [email or web address] [id number]) Nutritional Asmnt/Malnutrition Patient General Information Nutritional Screening Moderate Risk Diagnosis Psychosis Pertinent Medical Hx/Surgical Hx Chronic AFib, HTN, RA, Chronic Pain, Bipolar disorder, Constipation Subjective Information Pt is a 78-year-old male admitted on 08/10 d/t aggressive behavior with agitation and yelling. Pt is eating an estimated 75% of meals Per Meal/Nutrition Activity Record . Dietary is currently providing an estimated 1900 kcals and 90 gm Pro, per Pt PO intake this is providing an estimated 1425 kcals and 68gm Pro to meet 75% kcal and 85% Pro needs. Provided education to Diet clerks on K2 diet. Spoke with pt nurse Christian and pt DINH Adams about low potassium snacks to offer pt. Placed low K snacks with pt label in pt refrigerator. Visited pt in room, pt was awake and alert. Pt stated he is having trouble with BMs and has been receiving prune juice. I educated nurse Gino on trying other methods as prune juice is high in potassium. Let nurse know pt requested a PT eval and a wheelchair to get moving around. Pt also stated he does not have many teeth but does not like the mushy pureed foods. Spoke with nurse about speaking with MD to possibly upgrade diet Rx to mechanical soft chopped per pt request and MD assessment. Per wound care note (08/11), Intrinsic factors that delay wound healing: COPD, Asthma, Extrinsic factors that delay wound healing: Decreased mobility. Pt present with IAD with erythema in Perineal, APOLINAR Inguinal, and Scrotal areas. Anthropometrics HT: 62 WT: 170 LB (77.27 kg) BMI: 21.83 (normal) GI/ Skin Integrity GI: WNL, Soft, Non-tender BM: 08/11 x1 I/O: 1240/Not Noted Skin: Area of concern- redness , IAD with ertythema Rayo: 15 Diet Order: Pureed, PRAKASH, K2 Estimated Energy Needs: ( Geriatric, CBW) 6357-3369 kcals (25-30 kcals/ kg) 80-90g Pro (1.0-1.2 g/kg) 9157-1252 ml (25-30 ml/kg) Current Diet Order/ Nutrition Support Pureed, PRAKASH, K2 Pertinent Medications Maalox (PRN), Dulcolax (PRN), MOM (PRN), Protonix, Senna, Mylicon (PRN) Pertinent Labs 08/08: Na 133, Ca 8.2 08/07: Ca 7.9, T Protein 6.3, Alb 2.7 08/06: Cl 93, Alb 2.8, Ca 7.7, T Protein 6.1, Tags 26, A1c 5.3 % Nutritional Hx/Data Height 1.88 m Height (Calculated Centimeters) 188.0 Current Weight (lbs) 77.111 kg Weight (Calculated Kilograms) 77.1 Weight (Calculated Grams) 75483.7 [place] Body Weight 190 LB (86.36 kg) % [place] Body Weight 89 Body Mass Index (BMI) 21.8 Weight Status Approriate GI Symptoms Last BM 08/11 x1 Skin Integrity/Comment: Skin: Area of concern- redness , IAD with ertythema Rayo: 15 Current %PO Good (75-100%) Estimated Nutritional Goals BEE in Kcals: Using Current wt Calories/Kcals/Kg 20-25 Kcals Calculated 2365-6026 Protein: Using Current wt Protein g/k.0-1.2 Protein Calculated 80-90 Fluid: ml 1301-3103 ml (25-30 ml/kg) Nutritional Problem No current Nutrition Prob Problem No nutrition diagnosis at this time. Etiology N/A Signs/Symptoms: N/A Malnutrition Related to Morbid Obesity Malnutrition related to morbid obesity No Intervention/Recommendation Comments Continue Pureed, PRAKASH, K2 diet as tolerated. Expected Outcomes/Goals Expected Outcomes/Goals 1.PO intake to continue to meet 75% of estimated nutritional needs. 2.Monitor PO intake, wt, nutrition related labs, and skin integrity to trend WNL. 3.F/U as low risk in 7-10 days , 08/20-08/23
[2019-08-15] MEDS: Magnesium Hydroxide (MOM) 30 mL UDC PO PRN (13:30)
--- NOTE | 2019-08-15 23:12 | Progress Notes ---
DATE: 08/15/2019 Covering for Quinn Wright M.D. SUBJECTIVE: The patient was interviewed. Case was discussed with staff. Chart and records were reviewed. Per the staff, the patient has been guarded, has been isolating to his room, withdrawn, staying in his room most of the day, feeling sad, suspicious towards the staff, the patient was uncooperative with the interview with this provider, not willing to talk to this provider; however, per report, the patient has been very fixated on wanting to go to [facility] for unclear reasons. He is easily angered, impulsive, not redirectable during the interview and uncooperative overall. MENTAL STATUS EXAMINATION: The patient is an elderly male, appears to be angered with a constricted affect. Thought process appears to be somewhat loose at this time. Unable to assess for suicidal or homicidal thoughts. Unable to assess for hallucinations, but the patient does appear to be paranoid. Alert and oriented x 2. Insight, judgment and impulse control appear to be poor. ASSESSMENT: This is a 78-year-old male, admitted to [facility] on 08/11/2019 due to increasing aggression, agitation, yelling, screaming to the point where his nursing facility was unable to take care of him. The patient at this time continues with mood swings and anger episodes. He has poor insight into his condition. He is demanding to go to [facility] all for unknown reasons and he overall is uncooperative with his care. PLAN: We will continue the patient acute hospitalization. We will continue his medications as prescribed. We will encourage the patient to verbalize his needs and participate in group and milieu therapy. JOB# [id number]
[2019-08-16] MEDS: Pantoprazole 40 mg EC Tab PO SCH (06:41)
[2019-08-16] MEDS: Apixaban 5 MG TABLET PO SCH ×2 (08:58→17:03)
[2019-08-16] MEDS: Multivitamin w/ Minerals Tab PO SCH (08:59)
[2019-08-16] MEDS: NYSTATIN 100000 UNITS/GM POWD TP SCH ×2 (09:00→17:05)
--- NOTE | 2019-08-16 14:02 | General Progress Note ---
Subjective - Review of Systems Service Date: 08/16/19 Subjective: resting comfortably no distress Objective - Physical Exam Vitals and I&O: Vital Signs Temp 98.0 F 08/16/19 06:44 Pulse 116 08/16/19 08:59 Resp 20 08/16/19 06:44 BP 115/79 08/16/19 08:59 Pulse Ox 96 08/16/19 06:44 Intake & Output 08/15/19 08/16/19 08/16/19 18:59 06:59 18:59 Intake Total 800 240 Balance 800 240 Intake: Oral 800 240 Other: # Voids 3 2 # Bowel Movements 0 0 Stool Characteristics Soft Formed Brown Active Medications: Current Medications Al Hydrox/Mg Hydrox/Simethicone (Maalox) 30 ml PO Q4HR PRN PRN Reason: GI DISTRESS Stop: 10/11/19 19:44 Last Admin: 08/12/19 21:42 Dose: 30 ml Bisacodyl (Dulcolax 10 Mg Supp) 10 mg RC DAILY PRN PRN Reason: Constipation Stop: 10/11/19 00:20 Last Admin: 08/16/19 09:01 Dose: 10 mg Docusate Sodium (Colace) 100 mg PO BID [facility] Stop: 10/14/19 16:59 Last Admin: 08/16/19 08:59 Dose: 100 mg Duloxetine HCl (Cymbalta) 60 mg PO BID [facility]; Protocol Stop: 10/12/19 08:59 Last Admin: 08/16/19 08:59 Dose: 60 mg Folic Acid (Folate) 1 mg PO DAILY [facility] Stop: 10/11/19 08:59 Last Admin: 08/16/19 08:59 Dose: 1 mg Lorazepam (Ativan) 0.5 mg PO Q4HR PRN; Protocol PRN Reason: Anxiety Stop: 09/11/19 01:07 Magnesium Hydroxide (Milk Of Magnesia) 30 ml PO HS PRN PRN Reason: Constipation Stop: 10/11/19 19:44 Last Admin: 08/15/19 13:30 Dose: 30 ml Methotrexate (Methotrexate) 7.5 mg PO QMON [facility]; Protocol Stop: 10/11/19 07:29 Metoprolol Tartrate (Lopressor) 25 mg PO BID [facility] Stop: 10/12/19 08:59 Last Admin: 04/12/20 08:59 Dose: 25 mg Nystatin (Nystop) 0 units TP BID [facility] Stop: 10/11/19 16:59 Last Admin: 08/16/19 09:00 Dose: 100,000 units Pantoprazole Sodium (Protonix) 40 mg PO QDAC [facility] Stop: 10/12/19 07:29 Last Admin: 08/16/19 06:41 Dose: 40 mg Prednisone (Deltasone) 5 mg PO DAILY [facility] Stop: 10/11/19 08:59 Last Admin: 08/16/19 09:00 Dose: 5 mg Quetiapine Fumarate (Seroquel) 25 mg PO TID [facility]; Protocol Stop: 10/11/19 20:59 Last Admin: 08/16/19 09:00 Dose: 25 mg Quetiapine Fumarate (Seroquel) 100 mg PO HS [facility]; Protocol Stop: 10/11/19 20:59 Last Admin: 08/15/19 20:37 Dose: 100 mg Senna (Senna) 17.2 mg PO DAILY [facility] Stop: 10/11/19 08:59 Last Admin: 08/16/19 09:00 Dose: 17.2 mg Simethicone (Mylicon) 80 mg PO QID PRN PRN Reason: Gas Stop: 10/11/19 00:40 Last Admin: 08/13/19 16:47 Dose: 80 mg Tramadol HCl (Ultram) 50 mg PO Q6HR PRN PRN Reason: Pain (Moderate 4-6) Stop: 10/11/19 19:44 Last Admin: 08/15/19 20:37 Dose: 50 mg Trazodone HCl (Desyrel) 50 mg PO HS [facility]; Protocol Stop: 10/11/19 20:59 Last Admin: 08/15/19 20:37 Dose: 50 mg Zolpidem Tartrate (Ambien) 5 mg PO HS PRN PRN Reason: Insomnia Stop: 10/11/19 01:07 Last Admin: 08/14/19 21:20 Dose: 5 mg General: No acute distress HEENT: Atraumatic, PERRLA Neck: Supple, JVD, Thyromegaly Cardiovascular: Regular rate, Normal S1, Normal S2 Lungs: Clear to auscultation Abdomen: Bowel sounds, Soft Assessment/Plan - Assessment Assessment: 1.CHRONIC A FIB. 2.HTN. 3.RHEUMATOID ARTHRITIS. 4.BIPOLAR DISORDER. 5.CHRONIC CONSTIPATION 6.CHRONIC MALNUTRITION - Plan Plan: CONTINUE CURRENT TREATMENT Nutritional Asmnt/Malnutr-PDOC - Dietary Evaluation Malnutrition Findings (Please click <Entered> for more info): Nutritional Asmnt/Malnutrition Start: 08/14/19 15: 56 Text: Status: Complete Freq: Protocol: Document 08/14/19 15:56 ASHIA (Rec: 08/14/19 16:00 ASHIA [id number]) Nutritional Asmnt/Malnutrition Patient General Information Nutritional Screening Moderate Risk Diagnosis Psychosis Pertinent Medical Hx/Surgical Hx Chronic AFib, HTN, RA, Chronic Pain, Bipolar disorder, Constipation Subjective Information Pt is a 78-year-old male admitted on 08/10 d/t aggressive behavior with agitation and yelling. Pt is eating an estimated 75% of meals Per Meal/Nutrition Activity Record . Dietary is currently providing an estimated 1900 kcals and 90 gm Pro, per Pt PO intake this is providing an estimated 1425 kcals and 68gm Pro to meet 75% kcal and 85% Pro needs. Provided education to Diet clerks on K2 diet. Spoke with pt nurse Christian and pt DINH Adams about low potassium snacks to offer pt. Placed low K snacks with pt label in pt refrigerator. Visited pt in room, pt was awake and alert. Pt stated he is having trouble with BMs and has been receiving prune juice. I educated nurse Christian on trying other methods as prune juice is high in potassium. Let nurse know pt requested a PT eval and a wheelchair to get moving around. Pt also stated he does not have many teeth but does not like the mushy pureed foods. Spoke with nurse about speaking with MD to possibly upgrade diet Rx to mechanical soft chopped per pt request and MD assessment. Per wound care note (08/11), Intrinsic factors that delay wound healing: COPD, Asthma, Extrinsic factors that delay wound healing: Decreased mobility. Pt present with IAD with erythema in Perineal, APOLINAR Inguinal, and Scrotal areas. Anthropometrics HT: 62 WT: 170 LB (77.27 kg) BMI: 21.83 (normal) GI/ Skin Integrity GI: WNL, Soft, Non-tender BM: 08/11 x1 I/O: 1240/Not Noted Skin: Area of concern- redness , IAD with ertythema Rayo: 15 Diet Order: Pureed, PRAKASH, K2 Estimated Energy Needs: ( Geriatric, CBW) 6001-8418 kcals (25-30 kcals/ kg) 80-90g Pro (1.0-1.2 g/kg) 1846-5653 ml (25-30 ml/kg) Current Diet Order/ Nutrition Support Pureed, PRAKASH, K2 Pertinent Medications Maalox (PRN), Dulcolax (PRN), MOM (PRN), Protonix, Senna, Mylicon (PRN) Pertinent Labs 08/08: Na 133, Ca 8.2 08/07: Ca 7.9, T Protein 6.3, Alb 2.7 08/06: Cl 93, Alb 2.8, Ca 7.7, T Protein 6.1, Tags 26, A1c 5.3 % Nutritional Hx/Data Height 1.88 m Height (Calculated Centimeters) 188.0 Current Weight (lbs) 77.111 kg Weight (Calculated Kilograms) 77.1 Weight (Calculated Grams) 15813.7 [place] Body Weight 190 LB (86.36 kg) % [place] Body Weight 89 Body Mass Index (BMI) 21.8 Weight Status Approriate GI Symptoms Last BM 08/11 x1 Skin Integrity/Comment: Skin: Area of concern- redness , IAD with ertythema Rayo: 15 Current %PO Good (75-100%) Estimated Nutritional Goals BEE in Kcals: Using Current wt Calories/Kcals/Kg 20-25 Kcals Calculated 3700-8900 Protein: Using Current wt Protein g/k.0-1.2 Protein Calculated 80-90 Fluid: ml 7095-1206 ml (25-30 ml/kg) Nutritional Problem No current Nutrition Prob Problem No nutrition diagnosis at this time. Etiology N/A Signs/Symptoms: N/A Malnutrition Related to Morbid Obesity Malnutrition related to morbid obesity No Intervention/Recommendation Comments Continue Pureed, PRAKASH, K2 diet as tolerated. Expected Outcomes/Goals Expected Outcomes/Goals 1.PO intake to continue to meet 75% of estimated nutritional needs. 2.Monitor PO intake, wt, nutrition related labs, and skin integrity to trend WNL. 3.F/U as low risk in 7-10 days , 08/20-08/23
--- NOTE | 2019-08-16 22:57 | Progress Notes ---
DATE: 08/16/[address] Quinn Wright. SUBJECTIVE: The patient was interviewed. Case was discussed with staff. Chart and records were reviewed. Per the staff, the patient continues to have poor sleep, only slept 4 hours last night. He has been withdrawn. He has been paranoid. He has been isolating to his room. The patient was visited at bedside. He remained selectively mute. He does respond to his name, but quickly falls back asleep, not willing to cooperate at all with the interview. He also appears somewhat disheveled, disorganized and easily angered. MENTAL STATUS EXAMINATION: The patient is lying in the hospital bed, elderly male. He has blunted affect. Thought process appears to be loose. Unable to assess for suicidal or homicidal thoughts due to his poor cooperation, appears to be internally preoccupied, appears to be paranoid, appears to be disheveled. Alert and oriented x 2. Insight, judgment and impulse control appear to be poor. ASSESSMENT: A 78-year-old male admitted to [facility] on 08/11/2019 due to increasing aggression, agitation, yelling and screaming at the point where the nursing facility was unable to take care of him. The patient at this time continues with anger episodes, isolated, withdrawn, paranoid, poor self-care and no plan for self-care at this time. PLAN: We will continue the patient on acute hospitalization. Continue medications as prescribed. We will encourage the patient to verbalize his needs and participate in group and milieu therapy. JOB# [id number]
[2019-08-17] MEDS: Pantoprazole 40 mg EC Tab PO SCH (06:56)
[2019-08-17] MEDS: Multivitamin w/ Minerals Tab PO SCH (09:23)
[2019-08-17] MEDS: Apixaban 5 MG TABLET PO SCH ×2 (09:23→16:17)
[2019-08-17] MEDS: NYSTATIN 100000 UNITS/GM POWD TP SCH ×2 (09:56→16:20)
--- NOTE | 2019-08-17 13:42 | Progress Notes ---
DATE: 08/17/2019 SUBJECTIVE: This is a 78-year-old male, currently in the hospital, poor sleep, slept about 4 hours, erratic sleep. The patient talks to me, still really intent on going to [place]. I explained to him, which takes some time that he has no chcf days getting him to [place], might be really difficult, he may need to go back to [facility]. He then as though he did not hear anything that I told him states that he wants to go to [facility] first making a and [facility]. I once again explained to him in more detail that he has no chcf days and that his plan is going to [place] or any long-term other than [facility] may be extremely difficult. The patient complains of constipation. Staff noting he is going to the bathroom. He is asking for opiates including fentanyl, which I explained to him will only worsen his constipation. He asks for it anyway, stating he is not on the right medications. Medications were reviewed. Vitals were reviewed. Labs were reviewed. Blood pressure 112/68, pulse of 107. MENTAL STATUS EXAMINATION: Stated age, fair eye contact. Speech within normal limits. Mood "sick." Affect flat. Thought processes were somewhat confused. No SI, no HI, no overt psychotic symptoms fixated on going anywhere, but [facility]. PLAN: We will continue inpatient monitoring. The patient notes he is not on a high enough dose of his Seroquel at nighttime, will be increasing his dosing at night time. He is testing to poor sleep. We will make incremental medication adjustments. JOB# [id number]
[2019-08-17] MEDS: Magnesium Hydroxide (MOM) 30 mL UDC PO PRN (14:11)
[2019-08-17] MEDS ORDERED: Fleet Enema 135 mL RC PRN (14:46)
--- NOTE | 2019-08-17 20:31 | Internal Medicine Prog Note ---
Internal Medicine Subjective - Subjective Service Date: 08/17/19 Patient seen and examined:: without staff (HE FEELS BETTER) Patient is:: awake, verbal, in bed, talking, confused Per staff patient has:: no adverse event Internal Medicine Objective - Physical Exam Vitals and I&O: Vital Signs Temp 98.1 F 08/17/19 14:00 Pulse 75 08/17/19 16:18 Resp 18 08/17/19 14:00 BP 108/60 08/17/19 16:18 Pulse Ox 98 08/17/19 14:00 Intake & Output 08/17/19 08/17/19 08/18/19 06:59 18:59 06:59 Intake Total 360 1200 Balance 360 1200 Intake: Oral 360 1200 Other: # Voids 2 3 # Bowel Movements 0 1 Active Medications: Current Medications Al Hydrox/Mg Hydrox/Simethicone (Maalox) 30 ml PO Q4HR PRN PRN Reason: GI DISTRESS Stop: 10/11/19 19:44 Last Admin: 08/12/19 21:42 Dose: 30 ml Bisacodyl (Dulcolax 10 Mg Supp) 10 mg RC DAILY PRN PRN Reason: IF MOM IS INEFFECTIVE Stop: 10/11/19 00:20 Last Admin: 08/17/19 10:21 Dose: 10 mg Docusate Sodium (Colace) 100 mg PO BID [facility] Stop: 10/14/19 16:59 Last Admin: 08/17/19 16:17 Dose: 100 mg Duloxetine HCl (Cymbalta) 60 mg PO BID [facility]; Protocol Stop: 10/12/19 08:59 Last Admin: 08/17/19 16:17 Dose: 60 mg Folic Acid (Folate) 1 mg PO DAILY [facility] Stop: 10/11/19 08:59 Last Admin: 08/17/19 09:24 Dose: 1 mg Lorazepam (Ativan) 0.5 mg PO Q4HR PRN; Protocol PRN Reason: Anxiety Stop: 09/11/19 01:07 Magnesium Hydroxide (Milk Of Magnesia) 30 ml PO HS PRN PRN Reason: Constipation Stop: 10/11/19 19:44 Last Admin: 08/17/19 14:11 Dose: 30 ml Methotrexate (Methotrexate) 7.5 mg PO QMON [facility]; Protocol Stop: 10/11/19 07:29 Metoprolol Tartrate (Lopressor) 25 mg PO BID [facility] Stop: 10/12/19 08:59 Last Admin: 08/17/19 16:18 Dose: Not Given Nystatin (Nystop) 0 units TP BID [facility] Stop: 10/11/19 16:59 Last Admin: 08/17/19 16:20 Dose: 100,000 units Pantoprazole Sodium (Protonix) 40 mg PO QDAC [facility] Stop: 10/12/19 07:29 Last Admin: 08/17/19 06:56 Dose: 40 mg Prednisone (Deltasone) 5 mg PO DAILY [facility] Stop: 10/11/19 08:59 Last Admin: 08/17/19 09:24 Dose: 5 mg Quetiapine Fumarate (Seroquel) 25 mg PO TID [facility]; Protocol Stop: 10/11/19 20:59 Last Admin: 08/17/19 14:11 Dose: 25 mg Quetiapine Fumarate 100 mg/ (Quetiapine Fumarate 25 mg) 125 mg PO [facility] Stop: 10/16/19 20:59 Senna (Senna) 17.2 mg PO DAILY [facility] Stop: 10/11/19 08:59 Last Admin: 08/17/19 09:24 Dose: 17.2 mg Simethicone (Mylicon) 80 mg PO QID PRN PRN Reason: Gas Stop: 10/11/19 00:40 Last Admin: 08/13/19 16:47 Dose: 80 mg Sodium Phosphate (Fleet Enema) 135 ml RC DAILY PRN PRN Reason: IF DULCOLAX IS INEFFECTIVE Stop: 10/16/19 14:45 Tramadol HCl (Ultram) 50 mg PO Q6HR PRN PRN Reason: Pain (Moderate 4-6) Stop: 10/11/19 19:44 Last Admin: 08/15/19 20:37 Dose: 50 mg Trazodone HCl (Desyrel) 50 mg PO HS [facility]; Protocol Stop: 10/11/19 20:59 Last Admin: 08/16/19 20:58 Dose: 50 mg Zolpidem Tartrate (Ambien) 5 mg PO HS PRN PRN Reason: Insomnia Stop: 10/11/19 01:07 Last Admin: 08/16/19 20:58 Dose: 5 mg General: alert, demented Neck: Supple, No JVD, No thyromegaly, +2 carotid pulse wo bruit, No LAD Lungs: CTAB Cardiovascular: RRR, Normal S1, Normal S2, without murmur Abdomen: non-tender, non-distended Extremities: clear, deformity Neurological: no change Internal Medicine Assmt/Plan - Assessment Assessment: 1.CHRONIC A FIB. 2.HTN. 3.RHEUMATOID ARTHRITIS. 4.BIPOLAR DISORDER. - Plan Plan: CONTINUE ON CURRENT MEDICATION AND DIET Nutritional Asmnt/Malnutr-PDOC - Dietary Evaluation Malnutrition Findings (Please click <Entered> for more info): Nutritional Asmnt/Malnutrition Start: 08/14/19 15: 56 Text: Status: Complete Freq: Protocol: Document 08/14/19 15:56 SHIRAZANGELINE (Rec: 08/14/19 16:00 ASHIA [id number]) Nutritional Asmnt/Malnutrition Patient General Information Nutritional Screening Moderate Risk Diagnosis Psychosis Pertinent Medical Hx/Surgical Hx Chronic AFib, HTN, RA, Chronic Pain, Bipolar disorder, Constipation Subjective Information Pt is a 78-year-old male admitted on 08/10 d/t aggressive behavior with agitation and yelling. Pt is eating an estimated 75% of meals Per Meal/Nutrition Activity Record . Dietary is currently providing an estimated 1900 kcals and 90 gm Pro, per Pt PO intake this is providing an estimated 1425 kcals and 68gm Pro to meet 75% kcal and 85% Pro needs. Provided education to Diet clerks on K2 diet. Spoke with pt nurse Christian and pt DINH Adams about low potassium snacks to offer pt. Placed low K snacks with pt label in pt refrigerator. Visited pt in room, pt was awake and alert. Pt stated he is having trouble with BMs and has been receiving prune juice. I educated nurse Christian on trying other methods as prune juice is high in potassium. Let nurse know pt requested a PT eval and a wheelchair to get moving around. Pt also stated he does not have many teeth but does not like the mushy pureed foods. Spoke with nurse about speaking with MD to possibly upgrade diet Rx to mechanical soft chopped per pt request and MD assessment. Per wound care note (08/11), Intrinsic factors that delay wound healing: COPD, Asthma, Extrinsic factors that delay wound healing: Decreased mobility. Pt present with IAD with erythema in Perineal, APOLINAR Inguinal, and Scrotal areas. Anthropometrics HT: 62 WT: 170 LB (77.27 kg) BMI: 21.83 (normal) GI/ Skin Integrity GI: WNL, Soft, Non-tender BM: 08/11 x1 I/O: 1240/Not Noted Skin: Area of concern- redness , IAD with ertythema Rayo: 15 Diet Order: Pureed, PRAKASH, K2 Estimated Energy Needs: ( Geriatric, CBW) 9284-6643 kcals (25-30 kcals/ kg) 80-90g Pro (1.0-1.2 g/kg) 5463-1506 ml (25-30 ml/kg) Current Diet Order/ Nutrition Support Pureed, PRAKASH, K2 Pertinent Medications Maalox (PRN), Dulcolax (PRN), MOM (PRN), Protonix, Senna, Mylicon (PRN) Pertinent Labs 08/08: Na 133, Ca 8.2 08/07: Ca 7.9, T Protein 6.3, Alb 2.7 08/06: Cl 93, Alb 2.8, Ca 7.7, T Protein 6.1, Tags 26, A1c 5.3 % Nutritional Hx/Data Height 1.88 m Height (Calculated Centimeters) 188.0 Current Weight (lbs) 77.111 kg Weight (Calculated Kilograms) 77.1 Weight (Calculated Grams) 36015.7 [place] Body Weight 190 LB (86.36 kg) % [place] Body Weight 89 Body Mass Index (BMI) 21.8 Weight Status Approriate GI Symptoms Last BM 08/11 x1 Skin Integrity/Comment: Skin: Area of concern- redness , IAD with ertythema Rayo: 15 Current %PO Good (75-100%) Estimated Nutritional Goals BEE in Kcals: Using Current wt Calories/Kcals/Kg 20-25 Kcals Calculated 8024-1708 Protein: Using Current wt Protein g/k.0-1.2 Protein Calculated 80-90 Fluid: ml 3859-8624 ml (25-30 ml/kg) Nutritional Problem No current Nutrition Prob Problem No nutrition diagnosis at this time. Etiology N/A Signs/Symptoms: N/A Malnutrition Related to Morbid Obesity Malnutrition related to morbid obesity No Intervention/Recommendation Comments Continue Pureed, PRAKASH, K2 diet as tolerated. Expected Outcomes/Goals Expected Outcomes/Goals 1.PO intake to continue to meet 75% of estimated nutritional needs. 2.Monitor PO intake, wt, nutrition related labs, and skin integrity to trend WNL. 3.F/U as low risk in 7-10 days , 08/20-08/23
[2019-08-18] MEDS: Pantoprazole 40 mg EC Tab PO SCH (06:43)
[2019-08-18] MEDS: Multivitamin w/ Minerals Tab PO SCH (08:28)
[2019-08-18] MEDS: Apixaban 5 MG TABLET PO SCH ×2 (08:28→17:15)
--- NOTE | 2019-08-18 13:45 | Progress Notes ---
DATE: 08/18/2019 SUBJECTIVE: Case was discussed with staff of the patient, reviewed records. Covering for Dr. Wright. This is a 78-year-old male who was [facility] being medically cleared at [place]. The patient with a history of hypertension, atrial fibrillation, UTI infection, arthritis. The patient was sent because he was aggressive, agitated, yelling and screaming at the prison facility. Unable to control his behavior. He demand to leave the facility, trying to walk to [place]. He was verbally aggressive with the staff with a history of bipolar disorder. The patient was originally born in [place]. He is , no children. He is disabled. Diagnosed with bipolar disorder. The patient continues to be unpredictable, impulsive, continues to have poor insight, unable to make safe plan for self-care, still not erratic sleep. It seemed like he needs to go back to [facility] according to the Dr. Wright because he ran out of his alf there. The patient continues to have poor insight, unpredictable, impulsive. Flat Affect, confused. He denies any intent to harm himself or anyone who is unpredictable, impulsive. No side effects with the medication, no sedation, no nausea, no extrapyramidal symptoms. He is on Cymbalta 60 mg twice a day and Seroquel was increased to 125 mg at bedtime and 25 mg 3 times a day. We will continue outpatient group therapy, milieu therapy, adjust the medication as needed. JOB# [id number] JEAN PIERRE
--- NOTE | 2019-08-18 20:35 | Internal Medicine Prog Note ---
Internal Medicine Subjective - Subjective Service Date: 08/18/19 Patient seen and examined:: without staff (HE FEELS WELL) Patient is:: awake, verbal, in bed, talking, confused Per staff patient has:: no adverse event Internal Medicine Objective - Physical Exam Vitals and I&O: Vital Signs Temp 97.7 F 08/18/19 20:08 Pulse 67 08/18/19 20:08 Resp 18 08/18/19 20:08 BP 131/80 08/18/19 20:08 Pulse Ox 98 08/18/19 20:08 Intake & Output 08/18/19 08/18/19 08/19/19 06:59 18:59 06:59 Intake Total 120 800 120 Output Total 500 Balance 120 300 120 Intake: Oral 120 800 120 Output: Urine 500 Other: # Voids 3 3 # Bowel Movements 0 0 0 Active Medications: Current Medications Al Hydrox/Mg Hydrox/Simethicone (Maalox) 30 ml PO Q4HR PRN PRN Reason: GI DISTRESS Stop: 10/11/19 19:44 Last Admin: 08/12/19 21:42 Dose: 30 ml Bisacodyl (Dulcolax 10 Mg Supp) 10 mg RC DAILY PRN PRN Reason: IF MOM IS INEFFECTIVE Stop: 10/11/19 00:20 Last Admin: 08/18/19 17:17 Dose: 10 mg Docusate Sodium (Colace) 100 mg PO BID [facility] Stop: 10/14/19 16:59 Last Admin: 08/18/19 17:16 Dose: 100 mg Duloxetine HCl (Cymbalta) 60 mg PO BID [facility]; Protocol Stop: 10/12/19 08:59 Last Admin: 08/18/19 17:17 Dose: 60 mg Folic Acid (Folate) 1 mg PO DAILY [facility] Stop: 10/11/19 08:59 Last Admin: 08/18/19 08:28 Dose: 1 mg Lorazepam (Ativan) 0.5 mg PO Q4HR PRN; Protocol PRN Reason: Anxiety Stop: 09/11/19 01:07 Magnesium Hydroxide (Milk Of Magnesia) 30 ml PO HS PRN PRN Reason: Constipation Stop: 10/11/19 19:44 Last Admin: 08/17/19 14:11 Dose: 30 ml Methotrexate (Methotrexate) 7.5 mg PO QMON [facility] Stop: 10/23/19 07:29 Metoprolol Tartrate (Lopressor) 25 mg PO BID [facility] Stop: 10/12/19 08:59 Last Admin: 08/18/19 17:16 Dose: Not Given Nystatin (Nystop) 0 units TP BID [facility] Stop: 10/11/19 16:59 Last Admin: 08/17/19 16:20 Dose: 100,000 units Pantoprazole Sodium (Protonix) 40 mg PO QDAC [facility] Stop: 10/12/19 07:29 Last Admin: 08/18/19 06:43 Dose: 40 mg Prednisone (Deltasone) 5 mg PO DAILY [facility] Stop: 10/11/19 08:59 Last Admin: 08/18/19 08:27 Dose: 5 mg Quetiapine Fumarate (Seroquel) 25 mg PO TID [facility]; Protocol Stop: 10/11/19 20:59 Last Admin: 08/18/19 13:19 Dose: 25 mg Quetiapine Fumarate 100 mg/ (Quetiapine Fumarate 25 mg) 125 mg PO HS [facility] Stop: 10/16/19 20:59 Last Admin: 08/17/19 20:41 Dose: 125 mg Senna (Senna) 17.2 mg PO DAILY [facility] Stop: 10/11/19 08:59 Last Admin: 08/18/19 08:28 Dose: 17.2 mg Simethicone (Mylicon) 80 mg PO QID PRN PRN Reason: Gas Stop: 10/11/19 00:40 Last Admin: 08/13/19 16:47 Dose: 80 mg Sodium Phosphate (Fleet Enema) 135 ml RC DAILY PRN PRN Reason: IF DULCOLAX IS INEFFECTIVE Stop: 10/16/19 14:45 Tramadol HCl (Ultram) 50 mg PO Q6HR PRN PRN Reason: Pain (Moderate 4-6) Stop: 10/11/19 19:44 Last Admin: 08/17/19 21:17 Dose: 50 mg Trazodone HCl (Desyrel) 50 mg PO HS [facility]; Protocol Stop: 10/11/19 20:59 Last Admin: 08/17/19 20:39 Dose: 50 mg Zolpidem Tartrate (Ambien) 5 mg PO HS PRN PRN Reason: Insomnia Stop: 10/11/19 01:07 Last Admin: 04/13/20 20:42 Dose: 5 mg General: alert, demented Neck: Supple, No JVD, No thyromegaly, +2 carotid pulse wo bruit, No LAD Lungs: CTAB Cardiovascular: RRR, Normal S1, Normal S2, without murmur Abdomen: non-tender, non-distended Extremities: clear, deformity Neurological: no change Internal Medicine Assmt/Plan - Assessment Assessment: 1.CHRONIC A FIB. 2.HTN. 3.RHEUMATOID ARTHRITIS. 4.BIPOLAR DISORDER. - Plan Plan: CONTINUE ON CURRENT MEDICATION AND DIET Nutritional Asmnt/Malnutr-PDOC - Dietary Evaluation Malnutrition Findings (Please click <Entered> for more info): Nutritional Asmnt/Malnutrition Start: 08/14/19 15: 56 Text: Status: Complete Freq: Protocol: Document 08/14/19 15:56 ASHIA (Rec: 08/14/19 16:00 ASHIA [id number]) Nutritional Asmnt/Malnutrition Patient General Information Nutritional Screening Moderate Risk Diagnosis Psychosis Pertinent Medical Hx/Surgical Hx Chronic AFib, HTN, RA, Chronic Pain, Bipolar disorder, Constipation Subjective Information Pt is a 78-year-old male admitted on 08/10 d/t aggressive behavior with agitation and yelling. Pt is eating an estimated 75% of meals Per Meal/Nutrition Activity Record . Dietary is currently providing an estimated 1900 kcals and 90 gm Pro, per Pt PO intake this is providing an estimated 1425 kcals and 68gm Pro to meet 75% kcal and 85% Pro needs. Provided education to Diet clerks on K2 diet. Spoke with pt nurse Christian and pt DINH Adams about low potassium snacks to offer pt. Placed low K snacks with pt label in pt refrigerator. Visited pt in room, pt was awake and alert. Pt stated he is having trouble with BMs and has been receiving prune juice. I educated nurse Christian on trying other methods as prune juice is high in potassium. Let nurse know pt requested a PT eval and a wheelchair to get moving around. Pt also stated he does not have many teeth but does not like the mushy pureed foods. Spoke with nurse about speaking with MD to possibly upgrade diet Rx to mechanical soft chopped per pt request and MD assessment. Per wound care note (08/11), Intrinsic factors that delay wound healing: COPD, Asthma, Extrinsic factors that delay wound healing: Decreased mobility. Pt present with IAD with erythema in Perineal, APOLINAR Inguinal, and Scrotal areas. Anthropometrics HT: 62 WT: 170 LB (77.27 kg) BMI: 21.83 (normal) GI/ Skin Integrity GI: WNL, Soft, Non-tender BM: 08/11 x1 I/O: 1240/Not Noted Skin: Area of concern- redness , IAD with ertythema Rayo: 15 Diet Order: Pureed, PRAKASH, K2 Estimated Energy Needs: ( Geriatric, CBW) 6256-4136 kcals (25-30 kcals/ kg) 80-90g Pro (1.0-1.2 g/kg) 5942-8252 ml (25-30 ml/kg) Current Diet Order/ Nutrition Support Pureed, PRAKASH, K2 Pertinent Medications Maalox (PRN), Dulcolax (PRN), MOM (PRN), Protonix, Senna, Mylicon (PRN) Pertinent Labs 08/08: Na 133, Ca 8.2 08/07: Ca 7.9, T Protein 6.3, Alb 2.7 08/06: Cl 93, Alb 2.8, Ca 7.7, T Protein 6.1, Tags 26, A1c 5.3 % Nutritional Hx/Data Height 1.88 m Height (Calculated Centimeters) 188.0 Current Weight (lbs) 77.111 kg Weight (Calculated Kilograms) 77.1 Weight (Calculated Grams) 89392.7 [place] Body Weight 190 LB (86.36 kg) % [place] Body Weight 89 Body Mass Index (BMI) 21.8 Weight Status Approriate GI Symptoms Last BM 08/11 x1 Skin Integrity/Comment: Skin: Area of concern- redness , IAD with ertythema Rayo: 15 Current %PO Good (75-100%) Estimated Nutritional Goals BEE in Kcals: Using Current wt Calories/Kcals/Kg 20-25 Kcals Calculated 2475-3190 Protein: Using Current wt Protein g/k.0-1.2 Protein Calculated 80-90 Fluid: ml 3705-9469 ml (25-30 ml/kg) Nutritional Problem No current Nutrition Prob Problem No nutrition diagnosis at this time. Etiology N/A Signs/Symptoms: N/A Malnutrition Related to Morbid Obesity Malnutrition related to morbid obesity No Intervention/Recommendation Comments Continue Pureed, PRAKASH, K2 diet as tolerated. Expected Outcomes/Goals Expected Outcomes/Goals 1.PO intake to continue to meet 75% of estimated nutritional needs. 2.Monitor PO intake, wt, nutrition related labs, and skin integrity to trend WNL. 3.F/U as low risk in 7-10 days , 08/20-08/23
[2019-08-19] MEDS: Pantoprazole 40 mg EC Tab PO SCH (06:43)
[2019-08-19] MEDS: NYSTATIN 100000 UNITS/GM POWD TP SCH ×2 (09:10→16:01)
[2019-08-19] MEDS: Multivitamin w/ Minerals Tab PO SCH (09:12)
[2019-08-19] MEDS: Apixaban 5 MG TABLET PO SCH ×2 (09:12→16:02)
--- NOTE | 2019-08-19 13:27 | Discharge Summary ---
DATE OF DISCHARGE: 08/19/2019 HISTORY OF PRESENT ILLNESS: A 78-year-old male, currently in the hospital, diagnosed with bipolar disorder, was unruly at the place he was coming from the senior care, calmer on exam. When he got to the hospital, was just mostly fixated on going to [facility] or [facility], fixated on being constipated, but staff noting he is in fact not constipated, going to the bathroom, he is really fixated on his bowels, fixated on going to [facility] or [facility] for more laxatives. PAST PSYCHIATRIC HISTORY: Admissions in the past, bipolar. PAST MEDICAL HISTORY: Please see full H and P. MEDICATIONS: Noted. SOCIAL HISTORY: Coming from a senior care. PROVISIONAL DIAGNOSIS: Bipolar per history. MEDICAL HISTORY: Please see full H and P. HOSPITAL COURSE: After initial assessment, the patient was started on medications, adjusted, titrated. Over the course of treatment, mood improved, somewhat calmer, still mostly fixated on going to [facility], but less and more redirectable, sociable and engaged, better sleep, fair appetite. CONDITION UPON DISCHARGE: Improved. No agitation, no escalation of behaviors, calmer. No violent or aggressive behaviors. No SI, no HI, no voices. DISCHARGE DIAGNOSIS: Bipolar. MEDICAL: Please see full H and P. PROGNOSIS: The patient follows up with outpatient mental health services and remains compliant with treatment. Prognosis will improve, otherwise guarded. [facility]# [id number]
== END 2019-08-19 16:30 | DRG 885 ==
LOC: GERO 08-11 21:25
PROVIDERS: ADMIT Psychiatry & Neurology Psychiatry; ATTEND Psychiatry & Neurology Psychiatry
DX: F31.9 Bipolar disorder, unspecified (principal); I48.20 Chronic atrial fibrillation, unspecified; I10 Essential (primary) hypertension; M06.9 Rheumatoid arthritis, unspecified; K59.00 Constipation, unspecified; G89.4 Chronic pain syndrome; Z88.0 Allergy status to penicillin; Z88.8 Allergy status to other drugs, medicaments and biological substances
CPT/HCPCS: 83036-90; J7512; J8610; Z7610